=== PATIENT | female | born 1975 | race Caucasian/White ===

== ENCOUNTER 2025-07-20 10:17 | Inpatient (IN) ==
[2025-07-20] MEDS: HYDROmorphone INJ 0.5 MG/0.5 ML SYR IV STA ×2 (11:38→12:48)
[2025-07-20 11:56] LABS: Hematocrit (blood only) 35.9 % (37.0-47.0); Hemoglobin 12.0 g/dl (12.0-16.0); Immature Granulocytes # (auto) 0.02 K/uL (0.01-0.20); Immature Granulocytes % (auto) 0.2 %; Mean Corpuscular Hemoglobin 29.6 pg (25.0-34.0); Mean Corpuscular Volume 88.6 fL (80.0-100.0); Platelet Count 289 K/uL (130-400); RDW Standard Deviation 45.2 fL (36.4-46.3); Red Blood Count 4.05 M/uL (4.20-5.40); White Blood Count 10.25 K/ul (4.8-10.8)
--- NOTE | 2025-07-20 11:56 | Emergency Department Note ---
Impression & Plan Bilateral leg numbness, S/P insertion of spinal cord stimulator, Ambulatory dysfunction, Falls ED Provider Note Provider: Andrea Mcgraw MD CHIEF COMPLAINT: Leg weakness and pain, falls HISTORY OF PRESENT ILLNESS: Patient is a 50-year-old female extensive past medical history including spinal stenosis, fibromyalgia, recent kidney biopsy, spinal stimulator, neuropathy presenting here today reporting developing overnight increasing pain and numbness of the bilateral lower legs from the waist down. States of last week or 2 she has had a little bit of stool incontinence. States she got up in middle the night take her pain medicine her legs were burning and numb which was new. Does normally have neuropathy but this was different and has been taking her gabapentin. States she turned off her spinal stimulator last night to see if this would help. Fell to the ground onto her buttocks twice once overnight and once this morning. Had to be assisted up. TGs able to move her feet some but not very much and is weak and falling. Denies head injury or chest pain or neck pain. Reports a bit of nausea but that somewhat chronic. Takes chronic pain medicine as well as antiemetics at home. Spinal stimulator placed in March in [place] by pain management. States she cannot tolerate MRI secondary to this device. States she did urinate okay today. PAST MEDICAL HISTORY: As noted above MEDICATIONS: Reviewed no medications SOCIAL HISTORY: Resides at home PHYSICAL EXAM: GENERAL: alert and oriented in no acute distress on stretcher Head: normocephalic and atraumatic EYES: No injection, discharge or icterus. NECK: Trachea midline. ENT: Mucous membranes pink and moist. LUNGS: Airway patent. No retractions or tachypnea HEART: Regular rate and rhythm. No chest wall tenderness ABDOMEN: Soft and non-tender, without guarding or rebound. BACK: No midline tenderness, no SI joint tenderness. No bilateral flank tenderness. SKIN: Acyanotic, warm, dry, without rashes EXTREMITIES: Without swelling, tenderness or deformity NEUROLOGICAL:No aphasia. No facial droop or slurred speech. Feels sensation of the bilateral feet but states is diminished up through the bilateral thighs. Able to move the feet but not able to lift them off the bed. CONTINUOUS CARDIAC MONITORING: was ordered and showed a heart rate of 60s to 80s bpm in normal sinus rhythm GCS 15. Patient's laboratory studies and imaging reviewed. Differential includes Musculoskeletal, disc herniation, fracture, metastatic disease, cord compression, discitis, sciatica, cauda equina, infection, aortic disease, renal colic, gastrointestinal, as well as other pathologies. IMPRESSION/MEDICAL DECISION MAKING: Patient not on anticoagulation but is on aspirin and Plavix. Fell to the ground with leg weakness and numbness reported bilaterally. Denies any head injury. Chronic nausea is present. Given some pain medicine and nausea medicine here initially. Limitation secondary to her spinal stimulator for MRI and as such a CT abdomen pelvis as well as CT lumbar spine was obtained. Is able to move the feet some. Do not see evidence of vascular compromise or significant traumatic injury to lower extremities. Does have some underlying neuropathy but she states this is significantly worse. Denies other back surgeries in the past. Will obtain basic blood work as well as urinalysis but I do not believe this is renally related or infectious. No fevers reported. Blood work here without anemia. White blood count of 10 not significantly changed. No significant electrolyte abnormality signs or renal dysfunction of concern. No evidence of transaminitis or elevated CK. TSH is normal. CT of the abdomen pelvis and lumbar spine continue the cystic lesion right fusion but this is not changed and she just did a biopsy. Do NOT believe this is infected. No other acute bony abnormality of the lumbar spine such as fracture noted. No bleeding reported. Patient received additional dose of pain medication here. Discussed with patient findings. Obviously limited again by MRI. Does still have movement and gross sensation although she states diminished. Discussed with her coming in given her ambulatory dysfunction for further evaluation by spine. Discussed with Dr. Desai. I was able to get information of the patient has an [email or web address] stimulator. The device rep's number is [phone] Garcia out of [email or web address]. Discussed with MRI and they state they would be able to do it device is charged and placed in MRI mode. Evidently this is possible in the weekend as well. Will reach out to the hospitalist for admission given her ambulatory dysfunction & discomfort. DIAGNOSIS: Leg numbness, falls, ambulatory dysfunction DISPOSITION: Hospitalist will evaluate Patient was agreeable with this plan. Past Med/Surg History Problem List (Updated 07/20/25 @ 16:00 by Andrea Mcgraw M.D.) Falls (Acute) Ambulatory dysfunction (Acute) S/P insertion of spinal cord stimulator (Acute) Bilateral leg numbness (Acute) Status post biopsy of kidney (Acute) Acute right flank pain (Acute) Flank Pain (Acute) Bulging disc Arthritis Heart disease Hyperlipidemia Lupus Hypertension (Acute) Arthritis (Chronic) Fibromyalgia (Acute) Spinal stenosis (Chronic) Fibromyalgia (Chronic) Right upper quadrant abdominal pain (Acute) Asthma exacerbation (Acute) Hypertensive urgency (Acute 02/19/14) Intractable headache (Acute) Hypertensive crisis (Acute) Acute headache (Acute) Headache (Acute) Headache (Acute) Headache (Acute) Heart palpitations (Acute) Migraine (Acute) Family History Other No pertinent family history Social History Smoking Status: Current every day smoker Tobacco Type: Cigarettes Preferred Language: [place] Communication Ability: Effective Hearing Ability: Normal Feels Safe at Home: Yes Allergies Allergies Allergy/AdvReac Type Severity Reaction Status Date / Time azithromycin Allergy Severe shortness Verified 07/11/25 19:13 of breath citalopram Allergy Severe trouble Verified 07/11/25 19:13 breathing, loss of concisiousness iodine Allergy Severe ANAPHYLAXIS Verified 07/11/25 19:13 lisinopril Allergy Severe SHORTNESS Verified 07/11/25 19:13 OF BREATH; TAKES ENALAPRIL AT HOME W/O RXN Penicillins Allergy Severe SHORTNESS Verified 07/11/25 19:13 OF BREATH shellfish derived Allergy Severe ANAPHYLAXIS Verified 07/11/25 19:13 cephalexin Allergy Intermediate HIVES Verified 07/11/25 19:13 gabapentin Allergy Intermediate HIVES Verified 07/11/25 19:13 NSAIDS (Non-Steroidal Allergy Intermediate "ANTI-INFLAMMATORY" Verified 07/11/25 19:13 Anti-Inflamma = HIVES pregabalin Allergy Intermediate ITCHY Verified 07/11/25 19:13 RASH, SLIGHT SHORT OF BREATH meloxicam Allergy Mild RASH Verified 07/11/25 19:13 ketorolac AdvReac Severe SYNCOPE Verified 07/11/25 19:13 tromethamine AdvReac Severe SYNCOPE Verified 07/11/25 19:13 Sulfa (Sulfonamide AdvReac Mild NAUSEA Verified 07/11/25 19:13 Antibiotics) HOT DOGS AdvReac Intermediate Vomiting Uncoded 07/11/25 19:13 Home Meds Home Medications Medication Instructions Recorded Confirmed clopidogrel 75 mg tablet 75 mg PO QAM 07/24/18 07/20/25 cyanocobalamin (vitamin B-12) 1,000 mcg subcut MONTHLY 10/23/18 07/20/25 1,000 mcg/mL injection solution acetaminophen 300 mg-codeine 60 mg 1 tab PO Q6H PRN Pain 06/25/25 07/20/25 tablet albuterol sulfate 0.63 mg/3 mL 0.63 mg continuous nebulization 06/25/25 07/20/25 solution for nebulization Q6H PRN Wheezing albuterol sulfate 90 mcg/actuation 2 puff inhalation QID PRN 06/25/25 07/20/25 aerosol inhaler Shortness Of Breath Or Wheezing aspirin 81 mg chewable tablet 81 mg PO QAM 06/25/25 07/20/25 buprenorphine 20 mcg/hour weekly 1 patch topical WK 06/25/25 07/20/25 transdermal patch (Butrans) buspirone 10 mg tablet 10 mg PO QID 06/25/25 07/20/25 clonidine HCl 0.2 mg tablet 0.2 mg PO HS 06/25/25 07/20/25 docusate sodium 100 mg capsule 100 mg PO BID 06/25/25 07/20/25 epinephrine 0.3 mg/0.3 mL 0.3 mg IM DIRECTED PRN Allergic 06/25/25 07/20/25 injection, auto-injector Reaction ferrous sulfate 325 mg (65 mg 325 mg PO BID 06/25/25 07/20/25 iron) tablet (FeroSul) gabapentin 800 mg tablet 0 mg PO BID 06/25/25 07/20/25 gabapentin 800 mg tablet 0 mg PO HS 06/25/25 07/20/25 glimepiride 4 mg tablet 4 mg PO QAM 06/25/25 07/20/25 ipratropium 0.5 mg-albuterol 3 mg 3 ml inhalation Q6H PRN Wheezing 06/25/25 07/20/25 (2.5 mg base)/3 mL nebulization soln levocetirizine 5 mg tablet 5 mg PO QPM 06/25/25 07/20/25 magnesium oxide 400 mg (241.3 mg 400 mg PO BID 06/25/25 07/20/25 magnesium) tablet metformin 1,000 mg tablet 1,000 mg PO BID 06/25/25 07/20/25 metoprolol tartrate 100 mg tablet 100 mg PO BID 06/25/25 07/20/25 montelukast 10 mg tablet 10 mg PO HS 06/25/25 07/20/25 naproxen 500 mg tablet 500 mg PO BID PRN Pain 06/25/25 07/20/25 ondansetron HCl 4 mg tablet 4 mg PO Q6H 06/25/25 07/20/25 pantoprazole 40 mg tablet,delayed 40 mg PO BID 06/25/25 07/20/25 release pioglitazone 30 mg tablet 30 mg PO QAM 06/25/25 07/20/25 potassium chloride 20 mEq 20 meq PO BID 06/25/25 07/20/25 tablet,extended release(part/cryst) promethazine 25 mg tablet 25 mg PO BID 06/25/25 07/20/25 rosuvastatin 20 mg tablet 20 mg PO QAM 06/25/25 07/20/25 tizanidine 4 mg tablet 4 mg PO TID 06/25/25 07/20/25 trazodone 300 mg tablet 150 - 300 mg PO 06/25/25 07/20/25 umeclidinium 62.5 mcg-vilanterol 1 inh inhalation QA 06/25/25 07/20/25 25 mcg/actuation powdr for inhalation (Anoro Ellipta) viloxazine 150 mg capsule,extended 150 mg PO DAILY 06/25/25 07/20/25 release 24 hr (Qelbree) vortioxetine 20 mg tablet 20 mg PO DAILY 06/25/25 07/20/25 (Trintellix) zolpidem 12.5 mg tablet,extended 12.5 mg PO HS 06/25/25 07/20/25 release,multiphase ibuprofen 800 mg tablet 800 mg PO TID 07/11/25 07/20/25 metronidazole 500 mg tablet 500 mg PO TID 07/11/25 07/20/25 tramadol 50 mg tablet 50 mg PO Q4H PRN Pain 07/11/25 07/20/25 Previous Rx's Medication Instructions Recorded oxycodone 5 mg tablet 5 mg PO Q8H PRN pain #14 tabs 07/18/25 Results & Data (ED) Vital Signs Vital Signs - 24 hr 07/20/25 10:29 07/20/25 10:40 07/20/25 11:00 Temperature 36.8 C Temperature Source Oral Pulse Rate 74 73 72 Pulse Rate from SpO2 Sensor 72 Pulse Rhythm Respiratory Rate 20 16 Respiratory Effort / Characteristics Non-Labored Spontaneous Respiratory Depth Normal Respiratory Pattern Regular Blood Pressure 159/93 H 135/84 Blood Pressure Mean 115 95 Pulse Oximetry 96 95 Oxygen Delivery Method Room Air Room Air Sepsis Recent Fever Within 48 Hours No Sepsis New/Unexplained Change in Mental Status N/A Sepsis Action Taken by Nursing No Action Required 07/20/25 11:30 07/20/25 12:01 07/20/25 12:58 Temperature Temperature Source Pulse Rate 72 68 72 Pulse Rate from SpO2 Sensor 68 68 Pulse Rhythm Regular Respiratory Rate 24 17 15 Respiratory Effort / Characteristics Respiratory Depth Respiratory Pattern Blood Pressure 126/92 113/60 Blood Pressure Mean 103 70 Pulse Oximetry 91 92 90 Oxygen Delivery Method Room Air Room Air Room Air Sepsis Recent Fever Within 48 Hours Sepsis New/Unexplained Change in Mental Status Sepsis Action Taken by Nursing 07/20/25 13:30 07/20/25 14:33 07/20/25 15:23 Temperature Temperature Source Pulse Rate 68 73 72 Pulse Rate from SpO2 Sensor 68 73 Pulse Rhythm Respiratory Rate 15 17 Respiratory Effort / Characteristics Respiratory Depth Respiratory Pattern Blood Pressure 92/62 L 104/64 Blood Pressure Mean 72 77 Pulse Oximetry 92 92 Oxygen Delivery Method Room Air Room Air Sepsis Recent Fever Within 48 Hours Sepsis New/Unexplained Change in Mental Status Sepsis Action Taken by Nursing Laboratory Data 07/20/25 11:29 07/20/25 11:29 Lab Results 07/20/25 07/20/25 Range/Units 11:29 12:44 WBC 10.25 (4.8-10.8) K/ul RBC 4.05 L (4.20-5.40) M/uL Hgb 12.0 (12.0-16.0) g/dl Hct 35.9 L (37.0-47.0) % MCV 88.6 (80.0-100.0) fL MCH 29.6 (25.0-34.0) pg MCHC 33.4 (32.0-36.0) g/dL RDW Std Deviation 45.2 (36.4-46.3) fL RDW Coeff of Marliyn 14.0 (11.5-14.5) % Plt Count 289 (130-400) K/uL MPV 9.5 (9.4-12.4) fL Immature Gran % (Auto) 0.2 % Neut % (Auto) 49.9 % Lymph % (Auto) 42.7 % Iron % (Auto) 5.9 % Eos % (Auto) 1.0 % Baso % (Auto) 0.3 % Neut # (Auto) 5.12 (1.40-6.50) K/uL Lymph # (Auto) 4.38 H (1.20-3.40) K/uL Iron # (Auto) 0.60 H (0.11-0.59) K/uL Eos # (Auto) 0.10 (0.00-0.50) K/uL Baso # (Auto) 0.03 (0.00-0.20) K/uL Immature Gran # (Auto) 0.02 (0.01-0.20) K/uL PT 10.3 (9.0-12.0) Seconds INR 0.9 (0.9-1.1) Sodium 133 L (136-145) mmol/L Potassium 3.4 L (3.5-5.1) mmol/L Chloride 101 (98-107) mmol/L Carbon Dioxide 23 (21-32) mmol/L Anion Gap 9 (3-11) BUN 6 (6-23) mg/dl Creatinine 0.61 (0.6-1.2) mg/dl Est Cr Clr Drug Dosing 100.2 ml/min eGFR 109.53 BUN/Creatinine Ratio 9.8 L (10-20) Glucose 116 H (70-99(Fasting)) mg/dl POC Glucose 64 L* (70-99) mg/dl Calcium 9.1 (8.6-10.3) mg/dl Magnesium 1.7 (1.7-2.4) mg/dl Total Bilirubin 0.4 (0.2-1.0) mg/dl AST 13 (13-39) U/L ALT 11 (7-52) U/L Alkaline Phosphatase 108 H (34-104) U/L Total Creatine Kinase 28 (26-192) U/L Total Protein 6.5 (6.0-8.3) gm/dl Albumin 3.8 (3.4-5.0) gm/dl Globulin 2.7 (2.5-4.0) gm/dl Albumin/Globulin Ratio 1.4 (0.9-2) TSH 0.672 (0.300-4.500) uIu/ml Administered Medications Discontinued Medications Dexamethasone Sodium Phosphate (DexamethasonePf 10 Mg/Ml Vial) 6 mg IV NOW ONE Stop: 07/20/25 13:43 Last Admin: 07/20/25 14:25 Dose: 6 mg Documented By: QGV Hydromorphone HCl (Hydromorphone Inj 0.5 Mg/0.5 Ml Syr) 0.5 mg IV NOW STA Stop: 07/20/25 11:35 Last Admin: 07/20/25 11:38 Dose: 0.5 mg Documented By: BLAS Hydromorphone HCl (Hydromorphone Inj 0.5 Mg/0.5 Ml Syr) 0.5 mg IV NOW STA Stop: 07/20/25 12:31 Last Admin: 07/20/25 12:48 Dose: 0.5 mg Documented By: JOSELUIS Ondansetron HCl (Ondansetron Inj 2 Mg/Ml 2 Ml Vial) 4 mg IV NOW STA Stop: 07/20/25 11:43 Last Admin: 07/20/25 12:01 Dose: 4 mg Documented By: BLAS Imaging Data Radiologist's Impression: Abdomen/Pelvis CT 07/20/25 11:34 CT SCAN OF THE ABDOMEN AND PELVIS WITHOUT IV CONTRAST; CT SCAN OF THE LUMBAR SPINE WITHOUT IV CONTRAST CLINICAL HISTORY: Falls. Lower extremity weakness. Recent renal biopsy. COMPARISON STUDY: Abdominal CT dated 07/18/2025. TECHNIQUE: CT scan of the abdomen and pelvis is performed from the lung bases to the proximal femora. Additionally, CT scan of the lumbar spine is performed from the lower thoracic spine to the sacrum. Images for both examination are reviewed in the axial, sagittal, and coronal planes. IV contrast was not administered for this examination. A dose lowering technique was utilized adhering to the principles of ALARA. CT DOSE: 971.23 mGy.cm FINDINGS: Lung bases: The heart is mildly enlarged and without pericardial effusion. The coronary arteries are densely calcified. Probable scarring is seen at both lung bases. Diffuse pericardial thickening is observed. No lobar consolidation or pleural effusion is identified. There is a small hiatal hernia. Liver: The unenhanced liver is enlarged, measuring 20.8 cm in length. The liver is otherwise normal in contour and attenuation. There is no intrahepatic biliary ductal dilatation. Gallbladder: Surgically absent noting clips in the gallbladder fossa. Spleen: Normal in size and attenuation. Pancreas: Unremarkable. Adrenal glands: Unremarkable. Kidneys: The unenhanced kidneys are normal in size and without hydronephrosis. No renal calculi are identified and no ureteral stone is seen. Again seen is an approximately 4 x 2 cm cystic lesion arising from the interpolar right kidney which contains foci of gas. This is seen on image #94 and has not appreciably changed from 07/11/2025. There is mild surrounding inflammation. Abdominal vasculature: The abdominal aorta is normal in course and caliber noting advanced atherosclerotic calcification. Bowel: There is no bowel obstruction. [id number] fecal retention is seen throughout the colon. The appendix is not identified. Postoperative changes adjacent to cecum suggests prior appendectomy. Peritoneum: There is no intraperitoneal free air or abdominal ascites. Lymphadenopathy: Prominent retroperitoneal lymph nodes are similar to previous. A left periaortic node on image #144 measures 1.4 x 0.8 cm. Pelvic viscera: The bladder is distended but otherwise normal as imaged. The uterus is surgically absent. No adnexal lesion is seen. Skeletal structures: No lytic or blastic lesions are seen. Postsurgical changes noted in the lower thoracic region. An intrathecal lead is seen in the lower thoracic region. LUMBAR SPINE: Vertebral body height and alignment are maintained throughout the lumbar spine. There is no evidence of fracture or malalignment. The transverse and spinous processes are intact. There is no spondylolysis. There is mild disc space narrowing at L4-L5 with a small posterior disc bulge at this level. The remaining disc spaces are maintained. There is no CT evidence of large disc herniation or high-grade central canal stenosis. The paraspinous soft tissues are within normal limits. Soft tissues: A neurostimulator device is seen in the right gluteal tissues. IMPRESSION: 1. Again seen is a cystic lesion arising from the interpolar right kidney as detailed above. This has not appreciably changed from 07/18/2025 and contains foci of gas. There is mild surrounding inflammation. This may represent postbiopsy change. Superimposed infection would be impossible to exclude and clinical correlation will be essential. 2. No additional acute abnormality is identified in the abdomen or pelvis. 3. Prominent retroperitoneal lymph nodes are similar to previous. Continued attention at follow-up will be required. 4. No acute bony abnormality is seen involving the lumbar spine. 5. Advanced coronary artery atherosclerosis. 6. Additional findings as above. ACT 112: Negative or not required by law. Electronically signed by: Travon Pena M.D. 07/20/2025 12:[address] 07/20/25 11:34 CT SCAN OF THE ABDOMEN AND PELVIS WITHOUT IV CONTRAST; CT SCAN OF THE LUMBAR SPINE WITHOUT IV CONTRAST CLINICAL HISTORY: Falls. Lower extremity weakness. Recent renal biopsy. COMPARISON STUDY: Abdominal CT dated 07/18/2025. TECHNIQUE: CT scan of the abdomen and pelvis is performed from the lung bases to the proximal femora. Additionally, CT scan of the lumbar spine is performed from the lower thoracic spine to the sacrum. Images for both examination are reviewed in the axial, sagittal, and coronal planes. IV contrast was not administered for this examination. A dose lowering technique was utilized adhering to the principles of ALARA. CT DOSE: 971.23 mGy.cm FINDINGS: Lung bases: The heart is mildly enlarged and without pericardial effusion. The coronary arteries are densely calcified. Probable scarring is seen at both lung bases. Diffuse pericardial thickening is observed. No lobar consolidation or pleural effusion is identified. There is a small hiatal hernia. Liver: The unenhanced liver is enlarged, measuring 20.8 cm in length. The liver is otherwise normal in contour and attenuation. There is no intrahepatic biliary ductal dilatation. Gallbladder: Surgically absent noting clips in the gallbladder fossa. Spleen: Normal in size and attenuation. Pancreas: Unremarkable. Adrenal glands: Unremarkable. Kidneys: The unenhanced kidneys are normal in size and without hydronephrosis. No renal calculi are identified and no ureteral stone is seen. Again seen is an approximately 4 x 2 cm cystic lesion arising from the interpolar right kidney which contains foci of gas. This is seen on image #94 and has not appreciably changed from 07/11/2025. There is mild surrounding inflammation. Abdominal vasculature: The abdominal aorta is normal in course and caliber noting advanced atherosclerotic calcification. Bowel: There is no bowel obstruction. [id number] fecal retention is seen throughout the colon. The appendix is not identified. Postoperative changes adjacent to cecum suggests prior appendectomy. Peritoneum: There is no intraperitoneal free air or abdominal ascites. Lymphadenopathy: Prominent retroperitoneal lymph nodes are similar to previous. A left periaortic node on image #144 measures 1.4 x 0.8 cm. Pelvic viscera: The bladder is distended but otherwise normal as imaged. The uterus is surgically absent. No adnexal lesion is seen. Skeletal structures: No lytic or blastic lesions are seen. Postsurgical changes noted in the lower thoracic region. An intrathecal lead is seen in the lower thoracic region. LUMBAR SPINE: Vertebral body height and alignment are maintained throughout the lumbar spine. There is no evidence of fracture or malalignment. The transverse and spinous processes are intact. There is no spondylolysis. There is mild disc space narrowing at L4-L5 with a small posterior disc bulge at this level. The remaining disc spaces are maintained. There is no CT evidence of large disc herniation or high-grade central canal stenosis. The paraspinous soft tissues are within normal limits. Soft tissues: A neurostimulator device is seen in the right gluteal tissues. IMPRESSION: 1. Again seen is a cystic lesion arising from the interpolar right kidney as detailed above. This has not appreciably changed from 07/18/2025 and contains foci of gas. There is mild surrounding inflammation. This may represent postbiopsy change. Superimposed infection would be impossible to exclude and clinical correlation will be essential. 2. No additional acute abnormality is identified in the abdomen or pelvis. 3. Prominent retroperitoneal lymph nodes are similar to previous. Continued attention at follow-up will be required. 4. No acute bony abnormality is seen involving the lumbar spine. 5. Advanced coronary artery atherosclerosis. 6. Additional findings as above. ACT 112: Negative or not required by law. Electronically signed by: Travon Pena M.D. 07/20/2025 12:28 PM Discharge Plan Visit Data Chief Complaint: Leg Weakness, Bilateral Stated Complaint: NUMBNESS IN LEGS AND FEET ED Provider: Andrea Mcgraw Discharge Problem: Bilateral leg numbness, S/P insertion of spinal cord stimulator, Ambulatory dysfunction, Falls Patient Disposition: Being Evaluated by Hospitalist Condition: Fair Forms Stand Alone Forms: My [facility] Prescriptions Prescriptions: No Action clopidogrel 75 mg Tablet 75 mg PO QAM Rx Instructions: PER PT "STOPPED 3 DAYS AGO, DIRECTED" cyanocobalamin (vitamin B-12) 1,000 mcg/mL solution 1,000 mcg subcut MONTHLY Rx Instructions: DUE 07/23/25 albuterol sulfate 0.63 mg/3 mL solution for nebulization 0.63 mg continuous nebulization Q6H PRN (Reason: Wheezing) ipratropium-albuterol 0.5 mg-3 mg(2.5 mg base)/3 mL solution for nebulization 3 ml INHALATION Q6H PRN (Reason: Wheezing) metoprolol tartrate 100 mg tablet 100 mg PO BID tizanidine 4 mg tablet 4 mg PO TID Patient Comments: Originally written for as needed but patient states they take it three times a day standard. - 06/25/25 ondansetron HCl 4 mg tablet 4 mg PO Q6H Patient Comments: Originally written for as needed, but patient states she takes it every 6 hours standard. 06/25/25 clonidine HCl 0.2 mg tablet 0.2 mg PO HS potassium chloride 20 mEq tablet,ER particles/crystals 20 meq PO BID magnesium oxide 400 mg (241.3 mg magnesium) tablet 400 mg PO BID gabapentin 800 mg tablet 0 mg PO HS Patient Comments: Original Directions: 1200mg by mouth at bedtime. Listed as allergy on pt's allergy list. Unable to verify at this date/time if allergy is correct. 07/20/25 gabapentin 800 mg tablet 0 mg PO BID Patient Comments: Original Directions: 800mg by mouth twice daily. Listed as allergy on pt's allergy list. Unable to verify at this date/time if allergy is correct. 07/20/25 Rx Instructions: Morning/Afternoon pantoprazole 40 mg tablet,delayed release (DR/EC) 40 mg PO BID ferrous sulfate [FeroSul] 325 mg (65 mg iron) tablet 325 mg PO BID metformin 1,000 mg tablet 1,000 mg PO BID buspirone 10 mg tablet 10 mg PO QID glimepiride 4 mg tablet 4 mg PO QAM promethazine 25 mg tablet 25 mg PO BID Patient Comments: Originally written for as needed, but patient states she takes it twice daily. 06/25/25 trazodone 300 mg tablet 150 - 300 mg PO HS MDD 300mg/24hr Rx Instructions: Take 150mg at bedtime, and an additional 150mg if you wake up in the middle of the night. docusate sodium 100 mg capsule 100 mg PO BID aspirin 81 mg tablet,chewable 81 mg PO QAM Rx Instructions: PER PT "STOPPED 3 DAYS AGO, DIRECTED" montelukast 10 mg tablet 10 mg PO HS acetaminophen-codeine 300-60 mg tablet 1 tab PO Q6H PRN (Reason: Pain) Rx Instructions: PER PT "TAKE 4 X DAY, EVERY DAY". epinephrine 0.3 mg/0.3 mL auto-injector 0.3 mg IM DIRECTED PRN (Reason: Allergic Reaction) Rx Instructions: For a severe reaction Inject in outer thigh following instructions on package and go to the Emergency room. albuterol sulfate 90 mcg/actuation HFA aerosol inhaler 2 puff INHALATION QID PRN (Reason: Shortness Of Breath Or Wheezing) pioglitazone 30 mg tablet 30 mg PO QAM naproxen 500 mg tablet 500 mg PO BID PRN (Reason: Pain) rosuvastatin 20 mg tablet 20 mg PO QAM zolpidem 12.5 mg tablet,ext release multiphase 12.5 mg PO HS levocetirizine 5 mg tablet 5 mg PO QPM buprenorphine [Butrans] 20 mcg/hour patch weekly 1 patch topical WK Rx Instructions: Change patch on Fridays Trintellix 20 mg tablet 20 mg PO DAILY umeclidinium-vilanterol [Anoro Ellipta] 62.5-25 mcg/actuation blister with device 1 inh INHALATION QAM Qelbree 150 mg capsule,extended release 24hr 150 mg PO DAILY oxycodone 5 mg tablet 5 mg PO Q8H PRN (Reason: pain) Qty: 14 0RF ibuprofen 800 mg tablet 800 mg PO TID metronidazole 500 mg tablet 500 mg PO TID Rx Instructions: STARTED 06/29/25 FOR 14 DAYS tramadol 50 mg tablet 50 mg PO Q4H MDD 400 MG/DAILY PRN (Reason: Pain) Referrals Referrals: Ranjith Lane MD [Primary Care Provider] -
[2025-07-20] MEDS: ONDANSETRON INJ 2 MG/ML 2 ML VIAL IV STA (12:01)
[2025-07-20 12:21] LABS: Alanine Aminotransferase 11.0 U/L (7-52); Albumin Globulin Ratio 1.4 (0.9-2); Alkaline Phosphatase 108.0 U/L (34-104); Anion Gap 9.0 (3-11); Bilirubin,Total 0.4 mg/dl (0.2-1.0); Blood Urea Nitrogen 6.0 mg/dl (6-23); Calcium 9.1 mg/dl (8.6-10.3); Carbon Dioxide 23.0 mmol/L (21-32); Chloride 101.0 mmol/L (98-107); Creatine Kinase 28.0 U/L (26-192); Creatinine Clr Calc Pharmacy 100.2 ml/min; Globulin 2.7 gm/dl (2.5-4.0); Glucose 116.0 mg/dl (70-99(Fasting)); Magnesium 1.7 mg/dl (1.7-2.4); Potassium 3.4 mmol/L (3.5-5.1); Sodium 133.0 mmol/L (136-145); Total Protein 6.5 gm/dl (6.0-8.3)
[2025-07-20 12:23] LABS: INR 0.9 (0.9-1.1); Prothrombin Time 10.3 Seconds (9.0-12.0)
--- NOTE | 2025-07-20 12:30 | CT Scan Report ---
CT SCAN OF THE ABDOMEN AND PELVIS WITHOUT IV CONTRAST; CT SCAN OF THE LUMBAR SPINE WITHOUT IV CONTRAS T CLINICAL HISTORY: Falls. Lower extremity weakness. Recent renal biopsy. COMPARISON STUDY: Abdominal CT dated 07/18/2025. TECHNIQUE: CT scan of the abdomen and pelvis is performed from the lung bases to the proximal femora. Additionally, CT scan of the lumbar spine is performed from the lower thoracic spine to the sacrum. Images for both examination are reviewed in the axial, sagittal, and coronal planes. IV contrast was not administered for this examination. A dose lowering technique was utilized adhering to the princip les of YU. CT DOSE: 971.23 mGy.cm FINDINGS: Lung bases: The heart is mildly enlarged and without pericardial effusion. The coronary arteries are densely calcified. Probable scarring is seen at both lung bases. Diffuse pericardial thickening is ob served. No lobar consolidation or pleural effusion is identified. There is a small hiatal hernia. Liver: The unenhanced liver is enlarged, measuring 20.8 cm in length. The liver is otherwise normal i n contour and attenuation. There is no intrahepatic biliary ductal dilatation. Gallbladder: Surgically absent noting clips in the gallbladder fossa. Spleen: Normal in size and attenuation. Pancreas: Unremarkable. Adrenal glands: Unremarkable. Kidneys: The unenhanced kidneys are normal in size and without hydronephrosis. No renal calculi are i dentified and no ureteral stone is seen. Again seen is an approximately 4 x 2 cm cystic lesion arisin g from the interpolar right kidney which contains foci of gas. This is seen on image #94 and has not appreciably changed from 07/11/2025. There is mild surrounding inflammation. Abdominal vasculature: The abdominal aorta is normal in course and caliber noting advanced atheroscle rotic calcification. Bowel: There is no bowel obstruction. [id number] fecal retention is seen throughout the colon. The appendix is not identified. Postoperative changes adjacent to cecum suggests prior appendectomy. Peritoneum: There is no intraperitoneal free air or abdominal ascites. Lymphadenopathy: Prominent retroperitoneal lymph nodes are similar to previous. A left periaortic nod e on image #144 measures 1.4 x 0.8 cm. Pelvic viscera: The bladder is distended but otherwise normal as imaged. The uterus is surgically abs ent. No adnexal lesion is seen. Skeletal structures: No lytic or blastic lesions are seen. Postsurgical changes noted in the lower th oracic region. An intrathecal lead is seen in the lower thoracic region. LUMBAR SPINE: Vertebral body height and alignment are maintained throughout the lumbar spine. There i s no evidence of fracture or malalignment. The transverse and spinous processes are intact. There is no spondylolysis. There is mild disc space narrowing at L4-L5 with a small posterior disc bulge at th is level. The remaining disc spaces are maintained. There is no CT evidence of large disc herniation or high-grade central canal stenosis. The paraspinous soft tissues are within normal limits. Soft tissues: A neurostimulator device is seen in the right gluteal tissues. IMPRESSION: 1. Again seen is a cystic lesion arising from the interpolar right kidney as detailed above. This has not appreciably changed from 07/18/2025 and contains foci of gas. There is mild surrounding inflammati on. This may represent postbiopsy change. Superimposed infection would be impossible to exclude and c linical correlation will be essential. 2. No additional acute abnormality is identified in the abdomen or pelvis. 3. Prominent retroperitoneal lymph nodes are similar to previous. Continued attention at follow-up wi ll be required. 4. No acute bony abnormality is seen involving the lumbar spine. 5. Advanced coronary artery atherosclerosis. 6. Additional findings as above. ACT 112: Negative or not required by law. Electronically signed by: Travon Pena M.D. 07/20/2025 12:28 PM
[2025-07-20 12:36] LABS: Thyroid Stimulating Hormone 0.672 uIu/ml (0.300-4.500)
[2025-07-20] MEDS: dexAMETHasone**PF** 10 MG/ML VIAL IV ONE (14:25)
--- NOTE | 2025-07-20 15:38 | History & Physical Report ---
Date of Service July 20, 2025 Assessment & Plan (1) Bilateral leg numbness: Plan: Patient is a 50-year-old female with PMH HTN, HLD, COPD, DM II, CAD, STEMI s/p PCI LAD in 2019 & STEMI s/p PCI diagonal 2020, fibromyalgia, chronic pain, DDD, spinal stimulator placed March 2025 at [facility] in [place] PTSD, bipolar disorder, anxiety, depression, GERD, tobacco use presented to ER with c/o BLE weakness and bilateral feet pain started last night. #Chronic low back pain #BLE weakness #BLE numbness #BLE feet pain In ER given total 1 mg Dilaudid IV, Zofran, [address] abd/pelvis, CT L-spine: Again seen is a cystic lesion arising from the interpolar right kidney as detailed above. This has not appreciably changed from 07/18/2025 and contains foci of gas. There is mild surrounding inflammation. This may represent postbiopsy change. Superimposed infection would be impossible to exclude and clinical correlation will be essential. No additional acute abnormality is identified in the abdomen or pelvis. Prominent retroperitoneal lymph nodes are similar to previous. Continued attention at follow-up will be required. No acute bony abnormality is seen involving the lumbar spine. Consult ortho spine. Dr Desai aware and recommends MRI spine. MRI currently working to see if her stimulator is MRI compatible PT/OT eval Pain control with chronic Tylenol codeine, Butrans, gabapentin, tizanidine. Add Dilaudid as needed severe pain CBC, BMP in am #CAD #HTN #HLD Continue aspirin, Plavix, rosuvastatin, metoprolol tartrate, losartan, clonidine #DM II A1c: 8.3 on 07/06/25 In ER BSG dropped to 60's improved with juice and sandwich Hold home metformin, glimepiride Basal bolus insulin per protcol Glycemic pharmacist consult to assist with varying hypoglycemia and hyperglycemia #Nocturnal Hypoxia Pt reports was on up to 6L O2 via NC HS in past. States secondary to insurance issues has not had home oxygen Will start with 2L O2 HS and monitor nocturnal pulse ox study #COPD #Tobacco Use Continue home inhalers, albuterol prn Wheezing noted without reported increased cough, no sputum production or SOB. No consistent with COPD exacerbation at this time smoking cessation encouraged. Patient reports has cut back. She is hoping to stop smoking by the end of the month. Nicotine patch #Recent Pyelonephritis #Renal abscess vs Mass Following with [facility]. Treated with antibiotics. Reports no urinary symptoms. Reports improved right flank pain. Had recent renal biopsy on 07/17/25 at [facility], awaiting results UA unremarkable today # Bipolar disorder, anxiety, depression, PTSD Continue buspirone # GERD Continue PPI DVT Prophylaxis SCDs for now Admit med surg Full Code as per discussion with pt Follows with Dr Ranjith Lane for routine care Pt was seen and care coordinated with Dr Caba. See addendum I spent a total of 70 minutes reviewing notes, outpatient records, labs, medication, coordinating, documenting and providing care for this patient excluding time spent in the performance of separately billed services and excluding time spent by another provider/QHP. History of Present Illness Chief Complaint: BLE weakness and pain Primary Care Provider: Ranjith Lane MD Patient is a 50-year-old female with PMH HTN, HLD, COPD, DM II, CAD, STEMI s/p PCI LAD in 2019 & STEMI s/p PCI diagonal 2020, fibromyalgia, chronic pain, DDD, spinal stimulator placed March 2025 at [facility] in [place] PTSD, bipolar disorder, anxiety, depression, GERD, tobacco use presented to ER with c/o BLE weakness and bilateral feet pain started last night. Reports chronic back pain described as ache and sharp pain from mid back to lower back. She reports chronic bilateral heel pain with walking. She takes Tylenol with codeine four times a day and ibuprofen 800mg TID chronically. Reports woke up last night around midnight with low back pain. She took oxycodone (that she was given for right flank pain after renal biopsy) and fell back asleep. Reports waking up later to go to the bathroom and when she got to the bathroom she felt like her bilateral feet and lower legs were "on fire" and reports legs felt weak and couldn't walk back to bed without assistance. She states that her bilateral feet and lower legs feel tingly and numb along with the burning sensation. Reports last week had couple episodes stool incontinence. States chronic constipation and uses laxatives as needed. States past several days loose stool. States no bowel incontinence yesterday or today. Reports no BM today. States chronic stress urinary incontinence and feels this is baseline and denies any other urinary incontinence episodes. Denies dysuria, hematuria, urinary frequency. Patient with recent kidney biopsy and reports the right flank pain has improved but not resolved. Reports chronic cough. Denies any increased SOB. Denies fever/chills, diaphoresis, N/V, DIETZ, dizziness, syncope, vision changes, neck pain, CP, sore throat, rhinorrhea, other abdominal pain, extremity edema, rashes. Per chart review ER visit on 06/25/[address] abdomen pelvis with concern of pyelonephritis versus kidney abscess. She was ultimately transferred to [facility]. At [facility] for kidney infection and was discharged on 2 weeks of Levaquin, Flagyl course starting on 06/29/25 and patient reports completing the course. 07/17/2025 at [facility] for biopsy of right renal mass vs abscess Patient seen [facility] ER on 07/18/2025 for right flank pain and elevated blood pressure readings at home. In ER was given pain medication, UA unremarkable and did not have any leukocytosis. Blood pressures improved after pain control. Per note reported that ER physician spoke to her she on-call urology who felt if pain was controlled patient to be discharged home Allergies Allergy/AdvReac Type Severity Reaction Status Date / Time azithromycin Allergy Severe shortness Verified 07/11/25 19:13 of breath citalopram Allergy Severe trouble Verified 07/11/25 19:13 breathing, loss of concisiousness iodine Allergy Severe ANAPHYLAXIS Verified 07/11/25 19:13 lisinopril Allergy Severe SHORTNESS Verified 07/11/25 19:13 OF BREATH; TAKES ENALAPRIL AT HOME W/O RXN Penicillins Allergy Severe SHORTNESS Verified 07/11/25 19:13 OF BREATH shellfish derived Allergy Severe ANAPHYLAXIS Verified 07/11/25 19:13 cephalexin Allergy Intermediate HIVES Verified 07/11/25 19:13 gabapentin Allergy Intermediate HIVES Verified 07/11/25 19:13 NSAIDS (Non-Steroidal Allergy Intermediate "ANTI-INFLAMMATORY" Verified 07/11/25 19:13 Anti-Inflamma = HIVES pregabalin Allergy Intermediate ITCHY Verified 07/11/25 19:13 RASH, SLIGHT SHORT OF BREATH meloxicam Allergy Mild RASH Verified 07/11/25 19:13 ketorolac AdvReac Severe SYNCOPE Verified 07/11/25 19:13 tromethamine AdvReac Severe SYNCOPE Verified 07/11/25 19:13 Sulfa (Sulfonamide AdvReac Mild NAUSEA Verified 07/11/25 19:13 Antibiotics) HOT DOGS AdvReac Intermediate Vomiting Uncoded 07/11/25 19:13 Home Medications Medication Instructions Recorded Confirmed Type clopidogrel 75 mg tablet 75 mg PO QAM 07/24/18 07/20/25 History cyanocobalamin (vitamin B-12) 1,000 mcg subcut MONTHLY 10/23/18 07/20/25 History 1,000 mcg/mL injection solution acetaminophen 300 mg-codeine 60 mg 1 tab PO Q6H PRN Pain 06/25/25 07/20/25 History tablet albuterol sulfate 0.63 mg/3 mL 0.63 mg continuous nebulization 06/25/25 07/20/25 History solution for nebulization Q6H PRN Wheezing albuterol sulfate 90 mcg/actuation 2 puff inhalation QID PRN 06/25/25 07/20/25 History aerosol inhaler Shortness Of Breath Or Wheezing aspirin 81 mg chewable tablet 81 mg PO QAM 06/25/25 07/20/25 History buprenorphine 20 mcg/hour weekly 1 patch topical WK 06/25/25 07/20/25 History transdermal patch (Butrans) buspirone 10 mg tablet 10 mg PO QID 06/25/25 07/20/25 History clonidine HCl 0.2 mg tablet 0.2 mg PO HS 06/25/25 07/20/25 History docusate sodium 100 mg capsule 100 mg PO BID 06/25/25 07/20/25 History epinephrine 0.3 mg/0.3 mL 0.3 mg IM DIRECTED PRN Allergic 06/25/25 07/20/25 History injection, auto-injector Reaction ferrous sulfate 325 mg (65 mg 325 mg PO BID 06/25/25 07/20/25 History iron) tablet (FeroSul) gabapentin 800 mg tablet 1,200 mg PO HS 06/25/25 07/20/25 History gabapentin 800 mg tablet 800 mg PO BID 06/25/25 07/20/25 History glimepiride 4 mg tablet 4 mg PO QAM 06/25/25 07/20/25 History ipratropium 0.5 mg-albuterol 3 mg 3 ml inhalation Q6H PRN Wheezing 06/25/25 07/20/25 History (2.5 mg base)/3 mL nebulization soln levocetirizine 5 mg tablet 5 mg PO QPM 06/25/25 07/20/25 History magnesium oxide 400 mg (241.3 mg 400 mg PO BID 06/25/25 07/20/25 History magnesium) tablet metformin 1,000 mg tablet 1,000 mg PO BID 06/25/25 07/20/25 History metoprolol tartrate 100 mg tablet 100 mg PO BID 06/25/25 07/20/25 History montelukast 10 mg tablet 10 mg PO HS 06/25/25 07/20/25 History naproxen 500 mg tablet 500 mg PO BID PRN Pain 06/25/25 07/20/25 History ondansetron HCl 4 mg tablet 4 mg PO Q6H 06/25/25 07/20/25 History pantoprazole 40 mg tablet,delayed 40 mg PO BID 06/25/25 07/20/25 History release pioglitazone 30 mg tablet 30 mg PO QAM 06/25/25 07/20/25 History potassium chloride 20 mEq 20 meq PO BID 06/25/25 07/20/25 History tablet,extended release(part/cryst) promethazine 25 mg tablet 25 mg PO BID 06/25/25 07/20/25 History rosuvastatin 20 mg tablet 20 mg PO QAM 06/25/25 07/20/25 History tizanidine 4 mg tablet 4 mg PO TID 06/25/25 07/20/25 History trazodone 300 mg tablet 150 - 300 mg PO HS 06/25/25 07/20/25 History umeclidinium 62.5 mcg-vilanterol 2 inh inhalation QA 06/25/25 07/20/25 History 25 mcg/actuation powdr for inhalation (Anoro Ellipta) viloxazine 150 mg capsule,extended 150 mg PO DAILY 06/25/25 07/20/25 History release 24 hr (Qelbree) vortioxetine 20 mg tablet 20 mg PO DAILY 06/25/25 07/20/25 History (Trintellix) zolpidem 12.5 mg tablet,extended 12.5 mg PO HS 06/25/25 07/20/25 History release,multiphase ibuprofen 800 mg tablet 800 mg PO TID 07/11/25 07/20/25 History oxycodone 5 mg tablet 5 mg PO Q8H PRN pain #14 tabs 07/18/25 07/20/25 Rx Past Med/Surg History Problem List Falls (Acute) Ambulatory dysfunction (Acute) S/P insertion of spinal cord stimulator (Acute) Bilateral leg numbness (Acute) Status post biopsy of kidney (Acute) Acute right flank pain (Acute) Flank Pain (Acute) Bulging disc Arthritis Heart disease Hyperlipidemia Lupus Hypertension (Acute) Arthritis (Chronic) Fibromyalgia (Acute) Spinal stenosis (Chronic) Fibromyalgia (Chronic) Right upper quadrant abdominal pain (Acute) Asthma exacerbation (Acute) Hypertensive urgency (Acute 02/19/14) Intractable headache (Acute) Hypertensive crisis (Acute) Acute headache (Acute) Headache (Acute) Headache (Acute) Headache (Acute) Heart palpitations (Acute) Migraine (Acute) Surgical History (Updated 07/20/25 @ 17:18 by Janis Ernst PA-C) History of tonsillectomy and adenoidectomy History of hysterectomy Family History (Updated 07/20/25 @ 17:18 by Janis Ernst PA-C) Other Breast cancer Cancer Diabetes Dyslipidemia No pertinent family history Social History Smoking Status: Current every day smoker Tobacco Type: Cigarettes Second Hand Exposure: Yes; Do You Dip or Chew Tobacco: No; Tobacco Cessation Education Requested by Patient: No Hx Alcohol Use: No Hx Substance Use: No Preferred Language: Chinese Communication Ability: Effective Hearing Ability: Normal Sock Ironer Required: No Beliefs That Will Affect Care: None Current Living Situation: Family Other Information That Helps Us Care for You: No Feels Safe at Home: Yes Safety Concerns: Feels Safe At This Time Assistive Devices: Cane, Denture - Upper, Denture - Lower, Glasses and Walker Review of Systems Review of Systems: All systems reviewed & are unremarkable except as noted in HPI & below Physical Exam Physical Exam: General: no distress, WDWN Head: normocephalic, atraumatic Eyes: conjunctiva non-injected, anicteric ENT: normal inspection external ears, nose, mucous membranes moist Neck: supple, trachea midline Lungs: no respiratory distress, +scattered wheezing, no rhonchi/rales CV: RRR, no murmur, no pretibial edema Abd: normal BS, soft, +tenderness to right flank (pt reports has decreased prior prior) Back: +healed scar, +diffuse tenderness to palpation entire thoracic and lumbar spine, no ecchymosis or erythema. +straight leg raise to 45 degrees. strength appears intact and dorsiflexion and plantar flexion intact. Reported decreased sensation to dorsal and plantar bilateral feet and posterior calves bilaterally. brisk capillary refill, sensation to light touch intact Ext: no cyanosis, no calf tenderness Neuro: A&O x 3, no focal deficits noted, normal affect Skin: warm, dry Results & Data Results & Data Vital Signs (Past 12 Hours) Vital Signs Temp Pulse Resp BP Pulse Ox O2 Del Method 07/20/25 15:23 72 07/20/25 14:33 73 17 104/64 92 Room Air 07/20/25 13:30 68 15 92/62 L 92 Room Air 07/20/25 12:58 72 15 90 Room Air 07/20/25 12:01 68 17 113/60 92 Room Air 07/20/25 11:30 72 24 126/92 91 Room Air 07/20/25 11:00 72 16 135/84 95 Room Air 07/20/25 10:40 73 07/20/25 10:29 36.8 C 74 20 159/93 H 96 Room Air Laboratory Results Short CBC 07/20/25 Range/Units 11:29 WBC 10.25 (4.8-10.8) K/ul Hgb 12.0 (12.0-16.0) g/dl Hct 35.9 L (37.0-47.0) % Plt Count 289 (130-400) K/uL BMP 07/20/25 11:29 Sodium 133 L Potassium 3.4 L Chloride 101 Carbon Dioxide 23 BUN 6 Creatinine 0.61 Glucose 116 H Calcium 9.1 Cardiac Enzymes 07/20/25 Range/Units 11:29 Total Creatine Kinase 28 (26-192) U/L Liver Function 07/20/25 Range/Units 11:29 Total Bilirubin 0.4 (0.2-1.0) mg/dl AST 13 (13-39) U/L ALT 11 (7-52) U/L Alkaline Phosphatase 108 H (34-104) U/L Albumin 3.8 (3.4-5.0) gm/dl Urine 07/20/25 Range/Units 16:46 Urine Color Yellow Urine Appearance Clear (Clear) Urine pH 6.0 (4.5-7.5) Ur Specific [place] 1.007 (1.000-1.030) Urine Protein Negative (Negative) Urine Glucose (UA) Negative (Negative) Diagnostic Findings Abdomen/Pelvis CT 07/20/25 11:34 CT SCAN OF THE ABDOMEN AND PELVIS WITHOUT IV CONTRAST; CT SCAN OF THE LUMBAR SPINE WITHOUT IV CONTRAST CLINICAL HISTORY: Falls. Lower extremity weakness. Recent renal biopsy. COMPARISON STUDY: Abdominal CT dated 07/18/2025. TECHNIQUE: CT scan of the abdomen and pelvis is performed from the lung bases to the proximal femora. Additionally, CT scan of the lumbar spine is performed from the lower thoracic spine to the sacrum. Images for both examination are reviewed in the axial, sagittal, and coronal planes. IV contrast was not administered for this examination. A dose lowering technique was utilized adhering to the principles of ALARA. CT DOSE: 971.23 mGy.cm FINDINGS: Lung bases: The heart is mildly enlarged and without pericardial effusion. The coronary arteries are densely calcified. Probable scarring is seen at both lung bases. Diffuse pericardial thickening is observed. No lobar consolidation or pleural effusion is identified. There is a small hiatal hernia. Liver: The unenhanced liver is enlarged, measuring 20.8 cm in length. The liver is otherwise normal in contour and attenuation. There is no intrahepatic biliary ductal dilatation. Gallbladder: Surgically absent noting clips in the gallbladder fossa. Spleen: Normal in size and attenuation. Pancreas: Unremarkable. Adrenal glands: Unremarkable. Kidneys: The unenhanced kidneys are normal in size and without hydronephrosis. No renal calculi are identified and no ureteral stone is seen. Again seen is an approximately 4 x 2 cm cystic lesion arising from the interpolar right kidney which contains foci of gas. This is seen on image #94 and has not appreciably changed from 07/11/2025. There is mild surrounding inflammation. Abdominal vasculature: The abdominal aorta is normal in course and caliber noting advanced atherosclerotic calcification. Bowel: There is no bowel obstruction. [id number] fecal retention is seen throughout the colon. The appendix is not identified. Postoperative changes adjacent to cecum suggests prior appendectomy. Peritoneum: There is no intraperitoneal free air or abdominal ascites. Lymphadenopathy: Prominent retroperitoneal lymph nodes are similar to previous. A left periaortic node on image #144 measures 1.4 x 0.8 cm. Pelvic viscera: The bladder is distended but otherwise normal as imaged. The uterus is surgically absent. No adnexal lesion is seen. Skeletal structures: No lytic or blastic lesions are seen. Postsurgical changes noted in the lower thoracic region. An intrathecal lead is seen in the lower thoracic region. LUMBAR SPINE: Vertebral body height and alignment are maintained throughout the lumbar spine. There is no evidence of fracture or malalignment. The transverse and spinous processes are intact. There is no spondylolysis. There is mild disc space narrowing at L4-L5 with a small posterior disc bulge at this level. The remaining disc spaces are maintained. There is no CT evidence of large disc herniation or high-grade central canal stenosis. The paraspinous soft tissues are within normal limits. Soft tissues: A neurostimulator device is seen in the right gluteal tissues. IMPRESSION: 1. Again seen is a cystic lesion arising from the interpolar right kidney as detailed above. This has not appreciably changed from 07/18/2025 and contains foci of gas. There is mild surrounding inflammation. This may represent postbiopsy change. Superimposed infection would be impossible to exclude and clinical correlation will be essential. 2. No additional acute abnormality is identified in the abdomen or pelvis. 3. Prominent retroperitoneal lymph nodes are similar to previous. Continued attention at follow-up will be required. 4. No acute bony abnormality is seen involving the lumbar spine. 5. Advanced coronary artery atherosclerosis. 6. Additional findings as above. ACT 112: Negative or not required by law. Electronically signed by: Travon Pena M.D. 07/20/2025 12:[address] 07/20/25 11:34 CT SCAN OF THE ABDOMEN AND PELVIS WITHOUT IV CONTRAST; CT SCAN OF THE LUMBAR SPINE WITHOUT IV CONTRAST CLINICAL HISTORY: Falls. Lower extremity weakness. Recent renal biopsy. COMPARISON STUDY: Abdominal CT dated 07/18/2025. TECHNIQUE: CT scan of the abdomen and pelvis is performed from the lung bases to the proximal femora. Additionally, CT scan of the lumbar spine is performed from the lower thoracic spine to the sacrum. Images for both examination are reviewed in the axial, sagittal, and coronal planes. IV contrast was not administered for this examination. A dose lowering technique was utilized adhering to the principles of ALARA. CT DOSE: 971.23 mGy.cm FINDINGS: Lung bases: The heart is mildly enlarged and without pericardial effusion. The coronary arteries are densely calcified. Probable scarring is seen at both lung bases. Diffuse pericardial thickening is observed. No lobar consolidation or pleural effusion is identified. There is a small hiatal hernia. Liver: The unenhanced liver is enlarged, measuring 20.8 cm in length. The liver is otherwise normal in contour and attenuation. There is no intrahepatic biliary ductal dilatation. Gallbladder: Surgically absent noting clips in the gallbladder fossa. Spleen: Normal in size and attenuation. Pancreas: Unremarkable. Adrenal glands: Unremarkable. Kidneys: The unenhanced kidneys are normal in size and without hydronephrosis. No renal calculi are identified and no ureteral stone is seen. Again seen is an approximately 4 x 2 cm cystic lesion arising from the interpolar right kidney which contains foci of gas. This is seen on image #94 and has not appreciably changed from 07/11/2025. There is mild surrounding inflammation. Abdominal vasculature: The abdominal aorta is normal in course and caliber noting advanced atherosclerotic calcification. Bowel: There is no bowel obstruction. [id number] fecal retention is seen throughout the colon. The appendix is not identified. Postoperative changes adjacent to cecum suggests prior appendectomy. Peritoneum: There is no intraperitoneal free air or abdominal ascites. Lymphadenopathy: Prominent retroperitoneal lymph nodes are similar to previous. A left periaortic node on image #144 measures 1.4 x 0.8 cm. Pelvic viscera: The bladder is distended but otherwise normal as imaged. The uterus is surgically absent. No adnexal lesion is seen. Skeletal structures: No lytic or blastic lesions are seen. Postsurgical changes noted in the lower thoracic region. An intrathecal lead is seen in the lower thoracic region. LUMBAR SPINE: Vertebral body height and alignment are maintained throughout the lumbar spine. There is no evidence of fracture or malalignment. The transverse and spinous processes are intact. There is no spondylolysis. There is mild disc space narrowing at L4-L5 with a small posterior disc bulge at this level. The remaining disc spaces are maintained. There is no CT evidence of large disc herniation or high-grade central canal stenosis. The paraspinous soft tissues are within normal limits. Soft tissues: A neurostimulator device is seen in the right gluteal tissues. IMPRESSION: 1. Again seen is a cystic lesion arising from the interpolar right kidney as detailed above. This has not appreciably changed from 07/18/2025 and contains foci of gas. There is mild surrounding inflammation. This may represent postbiopsy change. Superimposed infection would be impossible to exclude and clinical correlation will be essential. 2. No additional acute abnormality is identified in the abdomen or pelvis. 3. Prominent retroperitoneal lymph nodes are similar to previous. Continued attention at follow-up will be required. 4. No acute bony abnormality is seen involving the lumbar spine. 5. Advanced coronary artery atherosclerosis. 6. Additional findings as above. ACT 112: Negative or not required by law. Electronically signed by: Travon Pena M.D. 07/20/2025 12:28 PM Supervising Physician Co-Signing Physician Notes 50-year-old female with PMH of HTN, HLD, COPD, DM II, CAD, STEMI s/p PCI LAD in 2019 & STEMI s/p PCI diagonal 2020, fibromyalgia, chronic pain, DDD, spinal stimulator placed March 2025 at [facility] in [place] PTSD, bipolar disorder, anxiety, depression, GERD, tobacco use presented to ER with c/o acute on chronic back pain w/ radiation to ble calf/heel. Pt reports she has chronic back pain w/ chronic b/l heel paresthesias but this time the paresthesias feel different. She reported few incontinent bowel movements in the last one week but states she was able to control bowel movement yesterday which was her last BM. She denies any incontinent problem w/ urine. Labs and imaging reviewed. appears fairly wnl, replete KCL. Acute on chronic back pain: a/w ble paresthesias. c/w home meds and iv pain meds for breakthrough pain. prn bowel regimen. On exam: RA, NAD, moves extremities, power 5/5 all extremities, rest of the exam as above. Total time spent independently: 21 min I have seen and examined the patient and have discussed the case with the provider above. I agree with the assessment and plan as stated.
[2025-07-20] MEDS: POTASSIUM CHLORIDE CRTAB 20 MEQ TABCR PO STA (16:43)
[2025-07-20 17:02] LABS: Appearance Urine Clear (Clear); Bacteria Urine Automated None Seen (None Seen); Cast Urine Automated 0-2 /lpf (0-2); Epithelial Cell Urine Auto 0-2 /hpf (0-2); Glucose Urine UA Negative (Negative); RBC Urine Automated 0-2 /hpf (0-2); WBC Urine Automated 0-5 /hpf (0-5)
[2025-07-20] MEDS ORDERED: GLUCOSE 10 TAB/TUBE PO PRN (19:12)
[2025-07-20] MEDS ORDERED: CARBOHYDRATES FOR HYPOGLYCEMIA PO PRN (19:12)
[2025-07-20] MEDS ORDERED: ALBUTEROL 0.083% NEBU SOLN 3 ML VIAL NEB PRN (19:12)
[2025-07-20] MEDS ORDERED: GLUCAGON FOR INJ 1 MG VIAL SQ PRN (19:12)
[2025-07-20] MEDS ORDERED: POLYETHYLENE (MIRALAX) 17 GM PACK PO PRN (19:12)
[2025-07-20] MEDS ORDERED: DEXTROSE 50% 50 ML SYRINGE IV PRN (19:12)
[2025-07-20] MEDS ORDERED: GLUCOSE 40% GEL 15 GM TUBE PO PRN (19:12)
[2025-07-20] MEDS ORDERED: PHARMACY GLYCEMIC MGMT CONSULT PRN (20:24)
[2025-07-20] MEDS: ACETAMINOPHEN W/CODEINE #3 1 TAB PO PRN (20:39)
[2025-07-20] MEDS: MAGNESIUM OXIDE 400 MG TAB PO SCH (20:40)
[2025-07-20] MEDS: CETIRIZINE HCL 10 MG TABLET PO SCH (20:40)
[2025-07-20] MEDS: busPIRone 5 MG TAB PO SCH (20:41)
[2025-07-20] MEDS: METOPROLOL TARTRATE 100 MG TAB PO SCH (20:41)
[2025-07-20] MEDS: GABAPENTIN 600 MG TAB PO SCH (20:41)
[2025-07-20] MEDS: GABAPENTIN 800 MG TAB PO SCH (20:41)
[2025-07-20] MEDS: MONTELUKAST SODIUM 10 MG TABLET PO SCH (20:41)
[2025-07-20] MEDS: FERROUS SULFATE 325 MG TAB PO SCH (20:41)
[2025-07-20] MEDS: INSULIN ASPART PER UNIT CHARGE SC SCH (20:49)
[2025-07-20] MEDS: ZOLPIDEM TARTRATE 5 MG TAB PO PRN (20:49)
[2025-07-20] MEDS: LANTUS PER UNIT CHARGE SC ONE (20:51)
[2025-07-20] MEDS: NICOTINE 14 MG/24 HR PATCH TD SCH (20:52)
[2025-07-20] MEDS: BUPRENORPHINE 10 MCG/HR TDSY TD SCH (20:58)
[2025-07-20] MEDS: REMOVE BUTRANS PATCH SCH (20:58)
[2025-07-20] MEDS ORDERED: LANTUS PER UNIT CHARGE SQ SCH (21:00)
[2025-07-21] MEDS: INSULIN ASPART PER UNIT CHARGE SC SCH (00:12)
[2025-07-21] MEDS: HYDROmorphone INJ 0.5 MG/0.5 ML SYR IV PRN ×2 (03:12→13:25)
[2025-07-21 06:52] LABS: Hematocrit (blood only) 34.2 % (37.0-47.0); Hemoglobin 11.5 g/dl (12.0-16.0); Mean Corpuscular Hemoglobin 29.6 pg (25.0-34.0); Mean Corpuscular Volume 88.1 fL (80.0-100.0); Platelet Count 234 K/uL (130-400); RDW Standard Deviation 44.2 fL (36.4-46.3); Red Blood Count 3.88 M/uL (4.20-5.40); White Blood Count 9.83 K/ul (4.8-10.8)
[2025-07-21 07:19] LABS: Anion Gap 6.0 (3-11); Blood Urea Nitrogen 11.0 mg/dl (6-23); Calcium 9.2 mg/dl (8.6-10.3); Carbon Dioxide 24.0 mmol/L (21-32); Chloride 105.0 mmol/L (98-107); Creatinine Clr Calc Pharmacy 119.5 ml/min; Glucose 129.0 mg/dl (70-99(Fasting)); Magnesium 2.0 mg/dl (1.7-2.4); Potassium 4.6 mmol/L (3.5-5.1); Sodium 135.0 mmol/L (136-145)
[2025-07-21 07:26] LABS: Hemoglobin A1C 8.9 % (4.5-5.6)
[2025-07-21] MEDS: REMOVE NICODERM PATCH SCH (08:26)
[2025-07-21] MEDS: POTASSIUM CHLORIDE CRTAB 20 MEQ TABCR PO SCH (08:28)
[2025-07-21] MEDS: UMECLIDINIUM/VILANTEROL 62.5/25MCG 7 PUFFS/INHALER INH SCH (08:29)
[2025-07-21] MEDS: VORTIOXETINE HYDROBROMIDE 20 MG TAB PO SCH (08:29)
[2025-07-21] MEDS: ROSUVASTATIN CALCIUM 20 MG TAB PO SCH (08:30)
[2025-07-21] MEDS: CLOPIDOGREL BISULFATE 75 MG TAB PO SCH (08:30)
[2025-07-21] MEDS: ASPIRIN 81 MG CHEW PO SCH (08:34)
--- NOTE | 2025-07-21 08:38 | Orthopedic Consultation ---
Date of Consultation July 21, 2025 Assessment & Plan (1) Ambulatory dysfunction: At this time we are working with [facility] to see if we can place her spinal cord stimulator in MRI mode and safely obtain an MRI of both the thoracic and lumbar spine to see if we can account for her change in ambulation function and foot pain. Make further recommendations after scans obtained. History of Present Illness Reason for Consultation: Bilateral foot pain Attending Physician: Taye Deras MD History of Present Illness This is a 50-year-old female with states that she began experiencing bilateral foot pain and numbness within the past few days. Is markedly limited her ability to stand and ambulate. She denies any clear radicular complaints. Denies any significant thoracolumbar pain. She denies any precipitating or event that led to her problem. Allergies Allergy/AdvReac Type Severity Reaction Status Date / Time azithromycin Allergy Severe shortness Verified 07/11/25 19:13 of breath citalopram Allergy Severe trouble Verified 07/11/25 19:13 breathing, loss of concisiousness iodine Allergy Severe ANAPHYLAXIS Verified 07/11/25 19:13 lisinopril Allergy Severe SHORTNESS Verified 07/11/25 19:13 OF BREATH; TAKES ENALAPRIL AT HOME W/O RXN Penicillins Allergy Severe SHORTNESS Verified 07/11/25 19:13 OF BREATH shellfish derived Allergy Severe ANAPHYLAXIS Verified 07/11/25 19:13 cephalexin Allergy Intermediate HIVES Verified 07/11/25 19:13 gabapentin Allergy Intermediate HIVES Verified 07/11/25 19:13 NSAIDS (Non-Steroidal Allergy Intermediate "ANTI-INFLAMMATORY" Verified 07/11/25 19:13 Anti-Inflamma = HIVES pregabalin Allergy Intermediate ITCHY Verified 07/11/25 19:13 RASH, SLIGHT SHORT OF BREATH meloxicam Allergy Mild RASH Verified 07/11/25 19:13 ketorolac AdvReac Severe SYNCOPE Verified 07/11/25 19:13 tromethamine AdvReac Severe SYNCOPE Verified 07/11/25 19:13 Sulfa (Sulfonamide AdvReac Mild NAUSEA Verified 07/11/25 19:13 Antibiotics) HOT DOGS AdvReac Intermediate Vomiting Uncoded 07/11/25 19:13 Home Medications Medication Instructions Recorded Confirmed Type clopidogrel 75 mg tablet 75 mg PO QAM 07/24/18 07/20/25 History cyanocobalamin (vitamin B-12) 1,000 mcg subcut MONTHLY 10/23/18 07/20/25 History 1,000 mcg/mL injection solution acetaminophen 300 mg-codeine 60 mg 1 tab PO Q6H PRN Pain 06/25/25 07/20/25 History tablet albuterol sulfate 0.63 mg/3 mL 0.63 mg continuous nebulization 06/25/25 07/20/25 History solution for nebulization Q6H PRN Wheezing albuterol sulfate 90 mcg/actuation 2 puff inhalation QID PRN 06/25/25 07/20/25 History aerosol inhaler Shortness Of Breath Or Wheezing aspirin 81 mg chewable tablet 81 mg PO QAM 06/25/25 07/20/25 History buprenorphine 20 mcg/hour weekly 1 patch topical WK 06/25/25 07/20/25 History transdermal patch (Butrans) buspirone 10 mg tablet 10 mg PO QID 06/25/25 07/20/25 History clonidine HCl 0.2 mg tablet 0.2 mg PO HS 06/25/25 07/20/25 History docusate sodium 100 mg capsule 100 mg PO BID 06/25/25 07/20/25 History epinephrine 0.3 mg/0.3 mL 0.3 mg IM DIRECTED PRN Allergic 06/25/25 07/20/25 History injection, auto-injector Reaction ferrous sulfate 325 mg (65 mg 325 mg PO BID 06/25/25 07/20/25 History iron) tablet (FeroSul) gabapentin 800 mg tablet 1,200 mg PO HS 06/25/25 07/20/25 History gabapentin 800 mg tablet 800 mg PO BID 06/25/25 07/20/25 History glimepiride 4 mg tablet 4 mg PO QAM 06/25/25 07/20/25 History ipratropium 0.5 mg-albuterol 3 mg 3 ml inhalation Q6H PRN Wheezing 06/25/25 07/20/25 History (2.5 mg base)/3 mL nebulization soln levocetirizine 5 mg tablet 5 mg PO QPM 06/25/25 07/20/25 History magnesium oxide 400 mg (241.3 mg 400 mg PO BID 06/25/25 07/20/25 History magnesium) tablet metformin 1,000 mg tablet 1,000 mg PO BID 06/25/25 07/20/25 History metoprolol tartrate 100 mg tablet 100 mg PO BID 06/25/25 07/20/25 History montelukast 10 mg tablet 10 mg PO HS 06/25/25 07/20/25 History naproxen 500 mg tablet 500 mg PO BID PRN Pain 06/25/25 07/20/25 History ondansetron HCl 4 mg tablet 4 mg PO Q6H 06/25/25 07/20/25 History pantoprazole 40 mg tablet,delayed 40 mg PO BID 06/25/25 07/20/25 History release pioglitazone 30 mg tablet 30 mg PO QAM 06/25/25 07/20/25 History potassium chloride 20 mEq 20 meq PO BID 06/25/25 07/20/25 History tablet,extended release(part/cryst) promethazine 25 mg tablet 25 mg PO BID 06/25/25 07/20/25 History rosuvastatin 20 mg tablet 20 mg PO QAM 06/25/25 07/20/25 History tizanidine 4 mg tablet 4 mg PO TID 06/25/25 07/20/25 History trazodone 300 mg tablet 150 - 300 mg PO HS 06/25/25 07/20/25 History umeclidinium 62.5 mcg-vilanterol 2 inh inhalation QA 06/25/25 07/20/25 History 25 mcg/actuation powdr for inhalation (Anoro Ellipta) viloxazine 150 mg capsule,extended 150 mg PO DAILY 06/25/25 07/20/25 History release 24 hr (Qelbree) vortioxetine 20 mg tablet 20 mg PO DAILY 06/25/25 07/20/25 History (Trintellix) zolpidem 12.5 mg tablet,extended 12.5 mg PO HS 06/25/25 07/20/25 History release,multiphase ibuprofen 800 mg tablet 800 mg PO TID 07/11/25 07/20/25 History oxycodone 5 mg tablet 5 mg PO Q8H PRN pain #14 tabs 07/18/25 07/20/25 Rx Patient History Surgical History (Updated 07/20/25 @ 17:18 by Janis Ernst PA-C) History of tonsillectomy and adenoidectomy History of hysterectomy Family History (Updated 07/20/25 @ 17:18 by Janis Ernst PA-C) Other Breast cancer Cancer Diabetes Dyslipidemia No pertinent family history Social History Smoking Status: Current every day smoker Tobacco Type: Cigarettes Second Hand Exposure: Yes; Do You Dip or Chew Tobacco: No; Tobacco Cessation Education Requested by Patient: No Hx Alcohol Use: No Hx Substance Use: No Preferred Language: Azerbaijani Communication Ability: Effective Hearing Ability: Normal [employer] Required: No Beliefs That Will Affect Care: None Current Living Situation: Family Other Information That Helps Us Care for You: No Feels Safe at Home: Yes Safety Concerns: Feels Safe At This Time Assistive Devices: Cane, Denture - Upper, Denture - Lower, Glasses and Walker Physical Exam Physical Exam: On exam patient is able to sit up in bed without difficulty. She can cross her legs comfortably. She exhibits some breakaway weakness is testing the plantarflexion dorsiflexion of the lower extremities. Sensory is diminished. She does have full sensation to the lower leg and thigh. Incisions are well- healed from the dorsal column stimulator placement. Results & Data Vital Signs (Past 12 Hours) Vital Signs Temp Pulse Pulse Resp BP Pulse Ox Pulse Ox 07/21/25 07:43 36.7 C 69 16 153/93 H 94 07/21/25 05:10 72 95 07/21/25 00:42 82 93 07/20/25 23:02 36.9 C 77 14 106/68 94 07/20/25 22:14 72 94 O2 Del Method O2 Del Method O2 Flow Rate 07/21/25 07:43 Room Air 07/21/25 05:10 Room Air 07/21/25 00:42 Nasal Cannula 07/20/25 23:02 Room Air 07/20/25 22:14 Nasal Cannula 2
[2025-07-21] MEDS ORDERED: PHARMACY GLYCEMIC MGMT CONSULT PRN (13:22)
[2025-07-21] MEDS: ONDANSETRON INJ 2 MG/ML 2 ML VIAL IV PRN (13:35)
--- NOTE | 2025-07-21 14:59 | Pharmacy Report ---
Pharmacy Glycemic Short Note 2 - Date of Service July 21, 2025 - Glycemic Short BSG Results (Last 24 hours): 07/20/25 07/20/25 07/20/25 17:12 20:07 20:11 Glucose POC Glucose 280 H 444 H* 410 H* 07/21/25 07/21/25 07/21/25 00:07 04:07 06:28 Glucose 129 H POC Glucose 354 H* 234 H 07/21/25 07/21/25 07/21/25 07:45 11:31 11:32 Glucose POC Glucose 124 H 322 H* 309 H* OUTPATIENT ANTIDIABETIC REGIMEN: * Pioglitazone 30mg PO qAM * Metformin 1000mg PO BID * Glimepiride 4mg PO qAM * HbA1c: 8.9% (07/21/25) ASSESSMENT: * Ms Peralta is a 50yo diabetic F admitted with LE pain/weakness/ambulatory dysfunction. * BSGs have been difficult to control in the setting of PO intake. Pt reports not tolerating diabetic diet and carb intake has been unpredictable and greater than expected. * Will continue to provide coverage of known CHO intake and encourage pt to explore high protein options and limited carb intake when able. * Will provide another dose of basal insulin this evening in an attempt to reach better glycemic control. * Pharmacy will continue to follow and adjust regimen as indicated. PLAN FOR INPATIENT GLYCEMIC CONTROL: * Hold outpatient oral diabetes medications * Basal insulin * Lantus 10 units SQ this evening * will re-evaluate tomorrow * Bolus insulin * NovoLog per scale ACHS or Q6hrs while NPO * Goal Range: Low 110 mg/dL - High 140 mg/dL * Correction Factor: 30 mg/dL/unit * Nutritional / Prandial insulin per carb ratio of 1 unit per 10 grams CHO consumed
[2025-07-21] MEDS: CHECK BUPRENORPHINE PATCH SCH (15:34)
--- NOTE | 2025-07-21 16:49 | Hospitalist Progress Note ---
Date of Service July 21, 2025 Assessment & Plan (1) Bilateral leg numbness: Plan: Patient is a 50-year-old female with PMH HTN, HLD, COPD, DM II, CAD, STEMI s/p PCI LAD in 2019 & STEMI s/p PCI diagonal 2020, fibromyalgia, chronic pain, DDD, spinal stimulator placed March 2025 at [facility] in [place] PTSD, bipolar disorder, anxiety, depression, GERD, tobacco use presented to ER with c/o BLE weakness and bilateral feet pain started last night. #Chronic low back pain #BLE weakness #BLE numbness #BLE feet pain In ER given total 1 mg Dilaudid IV, Zofran, [address] abd/pelvis, CT L-spine: Again seen is a cystic lesion arising from the interpolar right kidney as detailed above. This has not appreciably changed from 07/18/2025 and contains foci of gas. There is mild surrounding inflammation. This may represent postbiopsy change. Superimposed infection would be impossible to exclude and clinical correlation will be essential. No additional acute abnormality is identified in the abdomen or pelvis. Prominent retroperitoneal lymph nodes are similar to previous. Continued attention at follow-up will be required. No acute bony abnormality is seen involving the lumbar spine. Consult ortho spine. Dr Desai aware and recommends MRI spine. MRI currently working to see if her stimulator is MRI compatible PT/OT eval Pain control with chronic Tylenol codeine, Butrans, gabapentin, tizanidine. 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 Desai's recommendations #CAD #HTN #HLD Continue aspirin, Plavix, rosuvastatin, metoprolol tartrate, losartan, clonidine #DM II A1c: 8.3 on 07/06/25 In ER BSG dropped to 60's improved with juice and sandwich Hold home metformin, glimepiride Basal bolus insulin per protcol Glycemic pharmacist consult to assist with varying hypoglycemia and hyperglycemia #Nocturnal Hypoxia Pt reports was on up to 6L O2 via [place] HS in past. States secondary to insurance issues has not had home oxygen Will start with 2L O2 HS and monitor nocturnal pulse ox study #COPD #Tobacco Use Continue home inhalers, albuterol prn Wheezing noted without reported increased cough, no sputum production or SOB. No consistent with COPD exacerbation at this time smoking cessation encouraged. Patient reports has cut back. She is hoping to stop smoking by the end of the month. Nicotine patch #Recent Pyelonephritis #Renal abscess vs Mass Following with [facility]. Treated with antibiotics. Reports no urinary symptoms. Reports improved right flank pain. Had recent renal biopsy on 07/17/25 at [facility], awaiting results UA unremarkable today # Bipolar disorder, anxiety, depression, PTSD Continue buspirone # GERD Continue PPI DVT Prophylaxis SCDs for now Admit med surg Full Code as per discussion with pt Follows with Dr Ranjith Lane for routine care Admission and Anticipated Discharge Date Admission Date: July 20, 2025 Subjective Seen sitting up in bed, comfortable, not in distress States she still having low back pain with bilateral lower extremity Weakness with some numbness and bilateral feet pain no urinary or bowel incontinence no chest pain, dyspnea, palpitations, dizziness No other symptoms Review of Systems Review of Systems: all noted and negative except for above Physical Exam Physical Exam: General- oriented x 3, not in distress, speaks in sentences with no effort or accessory muscle use Eyes- anicteric Neck- no JVD Lungs- clear breath sounds bilaterally, no rales/wheezes Heart- normal rate, regular rhythm; no murmurs Abdomen- normal bowel sounds, nondistended, soft, nontender Extremities- no pretibial edema, no calf tenderness Neuro- alert, oriented x 3; lower extremity sensation 80%, motor strength 3 out of 5 bilaterally Otherwise no other gross focal neurologic deficits Skin- warm & dry Results & Data Results & Data Vital Signs (Past 12 Hours) Vital Signs Temp Pulse Pulse Resp BP BP Pulse Ox 07/21/25 14:51 36.8 C 73 18 194/91 H 94 07/21/25 09:31 07/21/25 07:43 36.7 C 69 16 153/93 H 94 07/21/25 05:10 72 Pulse Ox O2 Del Method O2 Del Method 07/21/25 14:51 Room Air 07/21/25 09:31 Room Air 07/21/25 07:43 Room Air 07/21/25 05:10 95 Room Air all noted and reviewed including below
--- NOTE | 2025-07-21 17:12 | Magnetic Resonance Report ---
Lumbar spine MRI without IV contrast History: Lower extremity weakness Comparison: None Technique: Sagittal T1-weighted, sagittal STIR, 3D volumetric axial and sagittal reconstructed T2-weighted images of the lumbar spine were obtained without intravenous contrast. Findings: There are 5 lumbar-type vertebrae assumed for the purposes of this dictation. The tip of the conus medullaris is at L1. Normal lumbar vertebral alignment. No aggressive lesions. On a level by level basis: T12-L1: No spinal canal or neuroforaminal stenosis. L1-2: No spinal canal or neuroforaminal stenosis. L2-3: No spinal canal or neuroforaminal stenosis. L3-4: No spinal canal or neuroforaminal stenosis. L4-5: Disc height loss is moderate and there is loss of T2 signal. There is moderate left and mild to moderate right neuroforaminal stenosis. Small disc bulge without significant spinal canal stenosis. Type II Modic endplate degenerative signal. L5-S1: Disc height loss is mild and there is loss of T2 signal. Mild bilateral neuroforaminal stenosis. No spinal canal stenosis. Paraspinous tissues are within normal limits. A T2 hyperintense right renal cyst is seen medially. Note: The following findings are common in the absence of low back pain and while we report their presence, they must be interpreted with caution and in the context of the clinical situation. (Reference -Jarvik et al, Spine 2001) Findings (prevalence in patients without low back pain) Disc degeneration (decreased T2 signal, height loss, bulge) (91%) Disc T2 - signal loss (83%) Disc height loss (56%) Disc bulge (64%) Disc protrusion (32%) Annular tear (38%). Impression: No acute finding. Degenerative changes are most pronounced at L4-5, as above. Electronically signed by Gilberto Mcintosh 07-21-2025 5:11 PM
[2025-07-21] MEDS: LANTUS PER UNIT CHARGE SC ONE (17:32)
[2025-07-22] MEDS: ACETAMINOPHEN 1,000 MG/100 ML VIAL IV STA (01:18)
[2025-07-22] MEDS: LANTUS PER UNIT CHARGE SC SCH (09:15)
--- NOTE | 2025-07-22 10:31 | Orthopedic Progress Note ---
Date of Service July 22, 2025 Assessment & Plan (1) Ambulatory dysfunction: Plan: I would like to obtain an thoracic MRI to rule out cord compression contributing to her symptom complex. Will also evaluate the position of her dorsal column stimulator. Pending these results we may consider neurology consult Wednesday. Admission and Anticipated Discharge Date Admission Date: July 20, 2025 Subjective Patient continues to note bilateral foot pain and inability to ambulate. Physical Exam Physical Exam: On exam she is in bed she sits up without difficulty. She has 4/5 testing of the bilateral plantarflexion dorsiflexion. Sensory is diminished. No evidence of clonus. Results & Data Vital Signs (Past 12 Hours) Vital Signs Temp Pulse Resp BP BP Pulse Ox O2 Del Method 07/22/25 08:07 71 154/92 H 07/22/25 07:25 36.7 C 75 18 138/83 96 Room Air 07/22/25 07:15 Room Air 07/22/25 00:11 36.7 C 68 16 100/65 95 Room Air
--- NOTE | 2025-07-22 13:01 | Magnetic Resonance Report ---
MRI OF THE THORACIC SPINE WITHOUT CONTRAST CLINICAL HISTORY: Low back pain. Bilateral leg numbness, weakness and tingling. COMPARISON: Thoracic spine MRI April 14, 2012. TECHNIQUE: Utilizing a 1.5 Tigist magnet and dedicated coil, multiplanar, multiecho imaging of the th oracic spine was performed without IV contrast. FINDINGS: Alignment of the thoracic spine is anatomic. Vertebral body heights are maintained. No jose ow edema or marrow replacement is present. There are no thoracic spine fractures. A few small T1 and T2 hyperintense lesions within the thoracic spine represent hemangiomas. Susceptibility artifact from the spinal stimulator is noted. The stimulator lead terminates at the T8 level. Thoracic cord signal and caliber are normal. There is no intracanalicular mass or fluid collection. There are no disc her niations within the thoracic spine. The central canal and neural foramen are patent. Paravertebral so ft tissues are unremarkable. IMPRESSION: 1. No significant abnormality within the thoracic spine by MRI. 2. Spinal stimulator in place. Lead terminates at the T8 level. Exam mildly compromised by associated susceptibility artifact. 3. Normal thoracic cord signal and caliber. 4. No disc herniations. Patent central canal and neural foramen. ACT 112: Negative or not required by law. Electronically signed by: Arnie Otto M.D. 07/22/2025 12:59 PM
--- NOTE | 2025-07-22 15:39 | Hospitalist Progress Note ---
Date of Service July 22, 2025 Assessment & Plan (1) Bilateral leg numbness: Plan: Patient is a 50-year-old female with PMH HTN, HLD, COPD, DM II, CAD, STEMI s/p PCI LAD in 2019 & STEMI s/p PCI diagonal 2020, fibromyalgia, chronic pain, DDD, spinal stimulator placed March 2025 at [facility] in [place] PTSD, bipolar disorder, anxiety, depression, GERD, tobacco use presented to ER with c/o BLE weakness and bilateral feet pain started last night. #Chronic low back pain #BLE weakness #BLE numbness #BLE feet pain In ER given total 1 mg Dilaudid IV, Zofran, [address] abd/pelvis, CT L-spine: Again seen is a cystic lesion arising from the interpolar right kidney as detailed above. This has not appreciably changed from 07/18/2025 and contains foci of gas. There is mild surrounding inflammation. This may represent postbiopsy change. Superimposed infection would be impossible to exclude and clinical correlation will be essential. No additional acute abnormality is identified in the abdomen or pelvis. Prominent retroperitoneal lymph nodes are similar to previous. Continued attention at follow-up will be required. No acute bony abnormality is seen involving the lumbar spine. Consult ortho spine. Dr Desai aware and recommends MRI spine. MRI currently working to see if her stimulator is MRI compatible PT/OT eval Pain control with chronic Tylenol codeine, Butrans, gabapentin, tizanidine. 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 Desai's recommendations 07/22 still having significant pain Lumbar spine MRI showing neural foraminal stenosis thoracic spine MRI pending #CAD #HTN #HLD Continue aspirin, Plavix, rosuvastatin, metoprolol tartrate, losartan, clonidine #DM II A1c: 8.3 on 07/06/25 In ER BSG dropped to 60's improved with juice and sandwich Hold home metformin, glimepiride Basal bolus insulin per protocol Glycemic pharmacist consult to assist with varying hypoglycemia and hyperglycemia #Nocturnal Hypoxia Pt reports was on up to 6L O2 via [place] HS in past. States secondary to insurance issues has not had home oxygen Will start with 2L O2 HS and monitor nocturnal pulse ox study - resolved #COPD #Tobacco Use Continue home inhalers, albuterol prn Wheezing noted without reported increased cough, no sputum production or SOB. No consistent with COPD exacerbation at this time smoking cessation encouraged. Patient reports has cut back. She is hoping to stop smoking by the end of the month. Nicotine patch #Recent Pyelonephritis #Renal abscess vs Mass Following with [facility] [place]. Treated with antibiotics. Reports no urinary symptoms. Reports improved right flank pain. Had recent renal biopsy on 07/17/25 at [facility], awaiting results UA unremarkable today # Bipolar disorder, anxiety, depression, PTSD Continue buspirone # GERD Continue PPI DVT Prophylaxis SCDs for now Admit med surg Full Code as per discussion with pt Follows with Dr Ranjith Lane for routine care Admission and Anticipated Discharge Date Admission Date: July 20, 2025 Subjective sitting up in bed, not in distress Still having significant back pain No problems with urination No other new symptoms Awaiting thoracic MRI Review of Systems Review of Systems: all noted and negative except for above Physical Exam Physical Exam: General- oriented x 3, not in distress, speaks in sentences with no effort or accessory muscle use Eyes- anicteric Neck- no JVD Lungs- clear breath sounds bilaterally, no crackles/wheezing Heart- normal rate, regular rhythm; no murmurs Abdomen- normal bowel sounds, nondistended, soft, nontender Extremities- no pretibial edema, no calf tenderness Neuro- alert, oriented x 3; no gross focal neurologic deficits Skin- warm & dry Results & Data Results & Data Vital Signs (Past 12 Hours) Vital Signs Temp Pulse Resp BP BP Pulse Ox O2 Del Method 07/22/25 14:33 82 150/80 H 07/22/25 13:58 89 172/90 H 07/22/25 08:07 71 154/92 H 07/22/25 07:25 36.7 C 75 18 138/83 96 Room Air 07/22/25 07:15 Room Air all noted and reviewed including below
[2025-07-22] MEDS: ACETAMINOPHEN 500 MG TAB PO STA (17:47)
[2025-07-23] MEDS: GABAPENTIN 800 MG TAB PO SCH (09:13)
--- NOTE | 2025-07-23 10:15 | Hospitalist Progress Note ---
Date of Service July 23, 2025 Assessment & Plan (1) Bilateral leg numbness: Plan: Patient is a 50-year-old female with PMH HTN, HLD, COPD, DM II, CAD, STEMI s/p PCI LAD in 2019 & STEMI s/p PCI diagonal 2020, fibromyalgia, chronic pain, DDD, spinal stimulator placed March 2025 at [facility] in [place] PTSD, bipolar disorder, anxiety, depression, GERD, tobacco use presented to ER with c/o BLE weakness and bilateral feet pain started last night. #Chronic low back pain #BLE weakness #BLE numbness #BLE feet pain In ER given total 1 mg Dilaudid IV, Zofran, [address] abd/pelvis, CT L-spine: Again seen is a cystic lesion arising from the interpolar right kidney as detailed above. This has not appreciably changed from 07/18/2025 and contains foci of gas. There is mild surrounding inflammation. This may represent postbiopsy change. Superimposed infection would be impossible to exclude and clinical correlation will be essential. No additional acute abnormality is identified in the abdomen or pelvis. Prominent retroperitoneal lymph nodes are similar to previous. Continued attention at follow-up will be required. No acute bony abnormality is seen involving the lumbar spine. Consult ortho spine. Dr Desai aware and recommends MRI spine. MRI currently working to see if her stimulator is MRI compatible PT/OT eval Pain control with chronic Tylenol codeine, Butrans, gabapentin, tizanidine. 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 Desai's recommendations 07/22 still having significant pain Lumbar spine MRI showing neural foraminal stenosis thoracic spine MRI pending 07/23 Still having significant back pain Awaiting further recommendations by Dr. Desai Continue as needed pain medications #Hypertension Blood pressure elevated last evening in the setting of pain, headache Amlodipine 5 mg 1 dose given Blood pressure improving Continue to monitor Continue with pain control #CAD #HTN #HLD Continue aspirin, Plavix, rosuvastatin, metoprolol tartrate, losartan, clonidine #DM II A1c: 8.3 on 07/06/25 In ER BSG dropped to 60's improved with juice and sandwich Hold home metformin, glimepiride Basal bolus insulin per protocol Glycemic pharmacist consult to assist with varying hypoglycemia and hyperglycemia #Nocturnal Hypoxia Pt reports was on up to 6L O2 via [place] HS in past. States secondary to insurance issues has not had home oxygen Will start with 2L O2 HS and monitor nocturnal pulse ox study - resolved #COPD #Tobacco Use Continue home inhalers, albuterol prn Wheezing noted without reported increased cough, no sputum production or SOB. No consistent with COPD exacerbation at this time smoking cessation encouraged. Patient reports has cut back. She is hoping to stop smoking by the end of the month. Nicotine patch #Recent Pyelonephritis #Renal abscess vs Mass Following with [facility]. Treated with antibiotics. Reports no urinary symptoms. Reports improved right flank pain. Had recent renal biopsy on 07/17/25 at [facility], awaiting results UA unremarkable today # Bipolar disorder, anxiety, depression, PTSD Continue buspirone # GERD Continue PPI DVT Prophylaxis SCDs for now Admit med surg Full Code as per discussion with pt Follows with Dr Ranjith Lane for routine care Admission and Anticipated Discharge Date Admission Date: July 20, 2025 Subjective seen sitting up in bed, not in distress Still having significant back pain and lower extremity weakness bilaterally- somewhat better Also still having some paresthesias No other new symptoms Review of Systems Review of Systems: all noted and negative except for above Physical Exam Physical Exam: General- oriented x 3, not in distress, speaks in sentences with no effort or accessory muscle use Eyes- anicteric Neck- no JVD Lungs- clear breath sounds bilaterally, no rales/wheezes Heart- normal rate, regular rhythm; no murmurs Abdomen- normal bowel sounds, nondistended, soft, nontender Extremities- no pretibial edema, no calf tenderness Neuro- alert, oriented x 3; lower extremity bilateral motor strength seems to be improving, 4 out of 5 today Sensation about 80% bilaterally Skin- warm & dry Results & Data Results & Data Vital Signs (Past 12 Hours) Vital Signs Temp Pulse Resp BP Pulse Ox O2 Del Method 07/23/25 07:21 36.4 C L 73 16 102/69 94 Room Air all noted and reviewed including below
--- NOTE | 2025-07-23 10:28 | Orthopedic Progress Note ---
Date of Service July 23, 2025 Assessment & Plan (1) Falls: Plan: MRIs of the thoracic lumbar spine available and reviewed. I do not appreciate any evidence of cord compression or neural compromise that could account for her foot pain. I have discussed with her revisiting the [facility] clinicians for reprogramming of her stem to see if this can help with her foot pain. She may also 1 of us arrange an outpatient neurology follow-up regarding her foot pain and beginnings of peripheral neuropathy. This point there is no indication for surgical invention she is stable to be discharged today per orthopedics. Admission and Anticipated Discharge Date Admission Date: July 20, 2025 Subjective Patient still complains of burning in numbness in her feet. She did however tolerate physical therapy today. Physical Exam Physical Exam: On exam she has reasonable strength of testing. She appears comfortable. Results & Data Vital Signs (Past 12 Hours) Vital Signs Temp Pulse Resp BP Pulse Ox O2 Del Method 07/23/25 07:21 36.4 C L 73 16 102/69 94 Room Air
--- NOTE | 2025-07-23 10:57 | Pharmacy Report ---
Pharmacy Glycemic Short Note 2 - Date of Service July 23, 2025 - Glycemic Short BSG Results (Last 24 hours): 07/22/25 07/22/25 07/22/25 11:31 16:22 21:26 POC Glucose 150 H 184 H 145 H 07/23/25 07:38 POC Glucose 156 H OUTPATIENT ANTIDIABETIC REGIMEN: * Pioglitazone 30mg PO qAM * Metformin 1000mg PO BID * Glimepiride 4mg PO qAM * HbA1c: 8.9% (07/21/25) ASSESSMENT: 07/23: * BSGs largely within goal the last 48h: [id number]/dL since yesterday. Received 10 units of basal and 27 units of bolus insulin yesterday. * Tolerating diet, other stressors stable. * Continue Lantus 10 units daily and Novolog moderate stress scale. 07/21: * Ms Peralta is a 50yo diabetic F admitted with LE pain/weakness/ambulatory dysfunction. * BSGs have been difficult to control in the setting of PO intake. Pt reports not tolerating diabetic diet and carb intake has been unpredictable and greater than expected. * Will continue to provide coverage of known CHO intake and encourage pt to explore high protein options and limited carb intake when able. * Will provide another dose of basal insulin this evening in an attempt to reach better glycemic control. * Pharmacy will continue to follow and adjust regimen as indicated. PLAN FOR INPATIENT GLYCEMIC CONTROL: * Hold outpatient oral diabetes medications * Basal insulin * Lantus 10 units SQ daily * Bolus insulin * NovoLog per scale ACHS or Q6hrs while NPO * Goal Range: Low 110 mg/dL - High 140 mg/dL * Correction Factor: 30 mg/dL/unit * Nutritional / Prandial insulin per carb ratio of 1 unit per 10 grams CHO consumed
[2025-07-24] MEDS: LANTUS PER UNIT CHARGE SC SCH (09:08)
--- NOTE | 2025-07-24 11:51 | Pharmacy Report ---
Pharmacy Glycemic Short Note 2 - Date of Service July 24, 2025 - Glycemic Short BSG Results (Last 24 hours): 07/23/25 07/23/25 07/24/25 16:44 20:34 07:20 POC Glucose 225 H 220 H 253 H 07/24/25 11:40 POC Glucose 100 H OUTPATIENT ANTIDIABETIC REGIMEN: * Pioglitazone 30mg PO qAM * Metformin 1000mg PO BID * Glimepiride 4mg PO qAM * HbA1c: 8.9% (07/21/25) ASSESSMENT: 07/24: * Patient received total of 40 units of insulin yesterday, of which 10 units were basal * Fasting BSG >200 this AM, titrated up basal insulin * Tightened CF/CR with breakfast, bsgs much improving with lunch therefore will resume previous parameters 07/23: * BSGs largely within goal the last 48h: [phone]/dL since yesterday. Received 10 units of basal and 27 units of bolus insulin yesterday. * Tolerating diet, other stressors stable. * Continue Lantus 10 units daily and Novolog moderate stress scale. 07/21: * Ms Peralta is a 50yo diabetic F admitted with LE pain/weakness/ambulatory dysfunction. * BSGs have been difficult to control in the setting of PO intake. Pt reports not tolerating diabetic diet and carb intake has been unpredictable and greater than expected. * Will continue to provide coverage of known CHO intake and encourage pt to explore high protein options and limited carb intake when able. * Will provide another dose of basal insulin this evening in an attempt to reach better glycemic control. * Pharmacy will continue to follow and adjust regimen as indicated. PLAN FOR INPATIENT GLYCEMIC CONTROL: * Hold outpatient oral diabetes medications * Basal insulin * Lantus 15 units SQ daily * Bolus insulin * NovoLog per scale ACHS or Q6hrs while NPO * Goal Range: Low 110 mg/dL - High 140 mg/dL * Correction Factor: 30 mg/dL/unit * Nutritional / Prandial insulin per carb ratio of 1 unit per 10 grams CHO consumed
--- NOTE | 2025-07-24 12:00 | Hospitalist Progress Note ---
Date of Service July 24, 2025 Assessment & Plan (1) Bilateral leg numbness: Plan: Patient is a 50-year-old female with PMH HTN, HLD, COPD, DM II, CAD, STEMI s/p PCI LAD in 2019 & STEMI s/p PCI diagonal 2020, fibromyalgia, chronic pain, DDD, spinal stimulator placed March 2025 at [facility] in [place] PTSD, bipolar disorder, anxiety, depression, GERD, tobacco use presented to ER with c/o BLE weakness and bilateral feet pain started last night. #Chronic low back pain #BLE weakness #BLE numbness #BLE feet pain In ER given total 1 mg Dilaudid IV, Zofran, [address] abd/pelvis, CT L-spine: Again seen is a cystic lesion arising from the interpolar right kidney as detailed above. This has not appreciably changed from 07/18/2025 and contains foci of gas. There is mild surrounding inflammation. This may represent postbiopsy change. Superimposed infection would be impossible to exclude and clinical correlation will be essential. No additional acute abnormality is identified in the abdomen or pelvis. Prominent retroperitoneal lymph nodes are similar to previous. Continued attention at follow-up will be required. No acute bony abnormality is seen involving the lumbar spine. Consult ortho spine. Dr Desai aware and recommends MRI spine. MRI currently working to see if her stimulator is MRI compatible PT/OT eval Pain control with chronic Tylenol codeine, Butrans, gabapentin, tizanidine. 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 Desai's recommendations 07/22 still having significant pain Lumbar spine MRI showing neural foraminal stenosis thoracic spine MRI pending 07/23 Still having significant back pain Awaiting further recommendations by Dr. Desai Continue as needed pain medications 07/24 no surgical intervention per orthopedic service Dr. Desai Awaiting [place] investment representative to adjust patient's back stimulator Patient considering discharge later this afternoon #Hypertension Blood pressure elevated last evening in the setting of pain, headache Amlodipine 5 mg 1 dose given Blood pressure improving Continue to monitor Continue with pain control #CAD #HTN #HLD Continue aspirin, Plavix, rosuvastatin, metoprolol tartrate, losartan, clonidine #DM II A1c: 8.3 on 07/06/25 In ER BSG dropped to 60's improved with juice and sandwich Hold home metformin, glimepiride Basal bolus insulin per protocol Glycemic pharmacist consult to assist with varying hypoglycemia and hyperglycemia #Nocturnal Hypoxia Pt reports was on up to 6L O2 via [place] HS in past. States secondary to insurance issues has not had home oxygen Will start with 2L O2 HS and monitor nocturnal pulse ox study - resolved #COPD #Tobacco Use Continue home inhalers, albuterol prn Wheezing noted without reported increased cough, no sputum production or SOB. No consistent with COPD exacerbation at this time smoking cessation encouraged. Patient reports has cut back. She is hoping to stop smoking by the end of the month. Nicotine patch #Recent Pyelonephritis #Renal abscess vs Mass Following with [facility] [place]. Treated with antibiotics. Reports no urinary symptoms. Reports improved right flank pain. Had recent renal biopsy on 07/17/25 at [facility], awaiting results UA unremarkable today # Bipolar disorder, anxiety, depression, PTSD Continue buspirone # GERD Continue PPI DVT Prophylaxis SCDs for now Admit med surg Full Code as per discussion with pt Follows with Dr Ranjith Lane for routine care Admission and Anticipated Discharge Date Admission Date: July 20, 2025 Subjective Seen resting in bed, sitting up, comfortable, not in distress Still having some back pain, but leg numbness and weakness seems to be improving She is able to walk around with a rolling walker No new symptoms Review of Systems Review of Systems: all noted and negative except for above Physical Exam Physical Exam: General- oriented x 3, not in distress, speaks in sentences with no effort or accessory muscle use Eyes- anicteric Neck- no JVD Lungs- clear breath sounds bilaterally, no rales/wheezes Heart- normal rate, regular rhythm; no murmurs Abdomen- normal bowel sounds, nondistended, soft, nontender Extremities- no pretibial edema, no calf tenderness Neuro- alert, oriented x 3; Right lower extremity motor strength 4 out of 5, left 5/5 Sensation 80 to 90% Skin- warm & dry Results & Data Results & Data Vital Signs (Past 12 Hours) Vital Signs Temp Pulse Resp BP Pulse Ox O2 Del Method 07/24/25 11:28 36.6 C 72 12 114/62 95 Room Air 07/24/25 07:22 36.4 C L 74 14 121/81 94 Room Air all noted and reviewed including below
[2025-07-24 23:09] VITALS: RESP 16
[2025-07-25 07:24] VITALS: BP 116/77; PULSE 76; TEMP 98.4; O2SAT 95
--- NOTE | 2025-07-25 16:41 | Discharge Summary ---
Discharge Summary Date of Service July 25, 2025 delayed entry date of service noted above Principal Dx & Hospital Course #1 = Principal Diagnosis (1) Bilateral leg numbness: Patient is a 50-year-old female with PMH HTN, HLD, COPD, DM II, CAD, STEMI s/p PCI LAD in 2019 & STEMI s/p PCI diagonal 2020, fibromyalgia, chronic pain, DDD, spinal stimulator placed March 2025 at [facility] in [place] PTSD, bipolar disorder, anxiety, depression, GERD, tobacco use presented to ER with c/o BLE weakness and bilateral feet pain started last night. #Chronic low back pain #BLE weakness #BLE numbness #BLE feet pain In ER given total 1 mg Dilaudid IV, Zofran, [address] abd/pelvis, CT L-spine: Again seen is a cystic lesion arising from the interpolar right kidney as detailed above. This has not appreciably changed from 07/18/2025 and contains foci of gas. There is mild surrounding inflammation. This may represent postbiopsy change. Superimposed infection would be impossible to exclude and clinical correlation will be essential. No additional acute abnormality is identified in the abdomen or pelvis. Prominent retroperitoneal lymph nodes are similar to previous. Continued attention at follow-up will be required. No acute bony abnormality is seen involving the lumbar spine. Consult ortho spine. Dr Desai aware and recommends MRI spine. MRI currently working to see if her stimulator is MRI compatible PT/OT eval Pain control with chronic Tylenol codeine, Butrans, gabapentin, tizanidine. 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 Desai's recommendations 07/22 still having significant pain Lumbar spine MRI showing neural foraminal stenosis thoracic spine MRI pending 07/23 Still having significant back pain Awaiting further recommendations by Dr. Desai Continue as needed pain medications 07/25 no surgical intervention per orthopedic service Dr. Desai pain, weakness/numbness improving able to ambulate with rolling walker outpatient ff up with [employer] discussed with patient's outpatient pain management provider ERICKA Crawford she will prescribe Oxycodone as per patient's request ff up outpatient with Ortho Spine #Hypertension likely from pain required 1 dose of Amlodipine 5mg Blood pressure improved #Abnormal CT abd/pelvis findings The coronary arteries are densely calcified. Diffuse pericardial thickening is observed. The unenhanced liver is enlarged, measuring 20.8 cm in length. Again seen is an approximately 4 x 2 cm cystic lesion arising from the interpolar right kidney which contains foci of gas. This is seen on image #94 and has not appreciably changed from 07/11/2025. There is mild surrounding inflammation. Abdominal vasculature: The abdominal aorta is normal in course and caliber not ing advanced atherosclerotic calcification. Lymphadenopathy: Prominent retroperitoneal lymph nodes are similar to previous. A left periaortic node on image #144 measures 1.4 x 0.8 cm. 1. Again seen is a cystic lesion arising from the interpolar right kidney as detailed above. This has not appreciably changed from 07/18/2025 and contains foci of gas. There is mild surrounding inflammation. This may represent postbiopsy change. Superimposed infection would be impossible to exclude and clinical correlation will be essential. 2. No additional acute abnormality is identified in the abdomen or pelvis. 3. Prominent retroperitoneal lymph nodes are similar to previous. Continued attention at follow-up will be required. 4. No acute bony abnormality is seen involving the lumbar spine. 5. Advanced coronary artery atherosclerosis. 6. Additional findings as above. - Further work up, management, and ff up as outpatient #CAD #HTN #HLD Continue aspirin, Plavix, rosuvastatin, metoprolol tartrate, losartan, clonidine #DM II A1c: 8.3 on 07/06/25 In ER BSG dropped to 60's improved with juice and sandwich Hold home metformin, glimepiride Basal bolus insulin per protocol Glycemic pharmacist consult to assist with varying hypoglycemia and hyperglycemia -- resume outpatient regimen outpatient ff up #Nocturnal Hypoxia Pt reports was on up to 6L O2 via [place] HS in past. States secondary to insurance issues has not had home oxygen Will start with 2L O2 HS and monitor nocturnal pulse ox study: negative - resolved #COPD #Tobacco Use Continue home inhalers, albuterol prn Wheezing noted without reported increased cough, no sputum production or SOB. No consistent with COPD exacerbation at this time smoking cessation encouraged. Patient reports has cut back. She is hoping to stop smoking by the end of the month. Nicotine patch #Recent Pyelonephritis #Renal abscess vs Mass Following with [facility]. Treated with antibiotics. Reports no urinary symptoms. Reports improved right flank pain. Had recent renal biopsy on 07/17/25 at [facility], awaiting results UA unremarkable outpatient ff up # Bipolar disorder, anxiety, depression, PTSD Continue buspirone # GERD Continue PPI DVT Prophylaxis SCDs for now d/c home ff up with PCP as outpatient plan of care discussed with patient in detail and at length all questions answered she is understanding, agreeable, comfortable with the plan of care Notes For Next Care Provider Medication Changes From Visit as per med rec Admission HPI Per Admitting Provider Patient is a 50-year-old female with PMH HTN, HLD, COPD, DM II, CAD, STEMI s/p PCI LAD in 2019 & STEMI s/p PCI diagonal 2020, fibromyalgia, chronic pain, DDD, spinal stimulator placed March 2025 at [facility] in [place] PTSD, bipolar disorder, anxiety, depression, GERD, tobacco use presented to ER with c/o BLE weakness and bilateral feet pain started last night. Reports chronic back pain described as ache and sharp pain from mid back to lower back. She reports chronic bilateral heel pain with walking. She takes Tylenol with codeine four times a day and ibuprofen 800mg TID chronically. Reports woke up last night around midnight with low back pain. She took oxycodone (that she was given for right flank pain after renal biopsy) and fell back asleep. Reports waking up later to go to the bathroom and when she got to the bathroom she felt like her bilateral feet and lower legs were "on fire" and reports legs felt weak and couldn't walk back to bed without assistance. She states that her bilateral feet and lower legs feel tingly and numb along with the burning sensation. Reports last week had couple episodes stool incontinence. States chronic constipation and uses laxatives as needed. States past several days loose stool. States no bowel incontinence yesterday or today. Reports no BM today. States chronic stress urinary incontinence and feels this is baseline and denies any other urinary incontinence episodes. Denies dysuria, hematuria, urinary frequency. Patient with recent kidney biopsy and reports the right flank pain has improved but not resolved. Reports chronic cough. Denies any increased SOB. Denies fever/chills, diaphoresis, N/V, DIETZ, dizziness, syncope, vision changes, neck pain, CP, sore throat, rhinorrhea, other abdominal pain, extremity edema, rashes. Per chart review ER visit on 06/25/[address] abdomen pelvis with concern of pyelonephritis versus kidney abscess. She was ultimately transferred to [facility]. At [facility] for kidney infection and was discharged on 2 weeks of Levaquin, Flagyl course starting on 06/29/25 and patient reports completing the course. 07/17/2025 at [facility] for biopsy of right renal mass vs abscess Patient seen [facility] ER on 07/18/2025 for right flank pain and elevated blood pressure readings at home. In ER was given pain medication, UA unremarkable and did not have any leukocytosis. Blood pressures improved after pain control. Per note reported that ER physician spoke to her she on-call urology who felt if pain was controlled patient to be discharged home Admission Exam Per Admitting Provider General: no distress, WDWN Head: normocephalic, atraumatic Eyes: conjunctiva non-injected, anicteric ENT: normal inspection external ears, nose, mucous membranes moist Neck: supple, trachea midline Lungs: no respiratory distress, +scattered wheezing, no rhonchi/rales CV: RRR, no murmur, no pretibial edema Abd: normal BS, soft, +tenderness to right flank (pt reports has decreased prior prior) Back: +healed scar, +diffuse tenderness to palpation entire thoracic and lumbar spine, no ecchymosis or erythema. +straight leg raise to 45 degrees. strength appears intact and dorsiflexion and plantar flexion intact. Reported decreased sensation to dorsal and plantar bilateral feet and posterior calves bilaterally. brisk capillary refill, sensation to light touch intact Ext: no cyanosis, no calf tenderness Neuro: A&O x 3, no focal deficits noted, normal affect Skin: warm, dry Discharge Exam General- oriented x 3, not in distress, speaks in sentences with no effort or accessory muscle use Eyes- anicteric Neck- no JVD Lungs- clear breath sounds bilaterally, no rales/wheezes Heart- normal rate, regular rhythm; no murmurs Abdomen- normal bowel sounds, nondistended, soft, nontender Extremities- no pretibial edema, no calf tenderness sensation LE BL 80-90% strength LE BL 4/5 Neuro- alert, oriented x 3; no gross focal neurologic deficits Skin- warm & dry Updated Medication List Medication Instructions Recorded Confirmed Type clopidogrel 75 mg tablet 75 mg PO QAM 07/24/18 07/20/25 History cyanocobalamin (vitamin B-12) 1,000 mcg subcut MONTHLY 10/23/18 07/20/25 History 1,000 mcg/mL injection solution albuterol sulfate 0.63 mg/3 mL 0.63 mg continuous nebulization 06/25/25 07/20/25 History solution for nebulization Q6H PRN Wheezing albuterol sulfate 90 mcg/actuation 2 puff inhalation QID PRN 06/25/25 07/20/25 History aerosol inhaler Shortness Of Breath Or Wheezing aspirin 81 mg chewable tablet 81 mg PO QAM 06/25/25 07/20/25 History buprenorphine 20 mcg/hour weekly 1 patch topical WK 06/25/25 07/20/25 History transdermal patch (Butrans) buspirone 10 mg tablet 10 mg PO QID 06/25/25 07/20/25 History clonidine HCl 0.2 mg tablet 0.2 mg PO HS 06/25/25 07/20/25 History docusate sodium 100 mg capsule 100 mg PO BID 06/25/25 07/20/25 History epinephrine 0.3 mg/0.3 mL 0.3 mg IM DIRECTED PRN Allergic 06/25/25 07/20/25 History injection, auto-injector Reaction ferrous sulfate 325 mg (65 mg 325 mg PO BID 06/25/25 07/20/25 History iron) tablet (FeroSul) gabapentin 800 mg tablet 1,200 mg PO HS 06/25/25 07/20/25 History gabapentin 800 mg tablet 800 mg PO BID 06/25/25 07/20/25 History glimepiride 4 mg tablet 4 mg PO QAM 06/25/25 07/20/25 History ipratropium 0.5 mg-albuterol 3 mg 3 ml inhalation Q6H PRN Wheezing 06/25/25 07/20/25 History (2.5 mg base)/3 mL nebulization soln levocetirizine 5 mg tablet 5 mg PO QPM 06/25/25 07/20/25 History magnesium oxide 400 mg (241.3 mg 400 mg PO BID 06/25/25 07/20/25 History magnesium) tablet metformin 1,000 mg tablet 1,000 mg PO BID 06/25/25 07/20/25 History metoprolol tartrate 100 mg tablet 100 mg PO BID 06/25/25 07/20/25 History montelukast 10 mg tablet 10 mg PO HS 06/25/25 07/20/25 History naproxen 500 mg tablet 500 mg PO BID PRN Pain 06/25/25 07/20/25 History ondansetron HCl 4 mg tablet 4 mg PO Q6H 06/25/25 07/20/25 History pantoprazole 40 mg tablet,delayed 40 mg PO BID 06/25/25 07/20/25 History release pioglitazone 30 mg tablet 30 mg PO QAM 06/25/25 07/20/25 History potassium chloride 20 mEq 20 meq PO BID 06/25/25 07/20/25 History tablet,extended release(part/cryst) promethazine 25 mg tablet 25 mg PO BID 06/25/25 07/20/25 History rosuvastatin 20 mg tablet 20 mg PO QAM 06/25/25 07/20/25 History tizanidine 4 mg tablet 4 mg PO TID 06/25/25 07/20/25 History trazodone 300 mg tablet 150 - 300 mg PO HS 06/25/25 07/20/25 History umeclidinium 62.5 mcg-vilanterol 2 inh inhalation QAM 06/25/25 07/20/25 History 25 mcg/actuation powdr for inhalation (Anoro Ellipta) viloxazine 150 mg capsule,extended 150 mg PO DAILY 06/25/25 07/20/25 History release 24 hr (Qelbree) vortioxetine 20 mg tablet 20 mg PO DAILY 06/25/25 07/20/25 History (Trintellix) zolpidem 12.5 mg tablet,extended 12.5 mg PO HS 06/25/25 07/20/25 History release,multiphase ibuprofen 800 mg tablet 800 mg PO TID 07/11/25 07/20/25 History oxycodone 5 mg tablet 5 mg PO Q8H PRN pain #14 tabs 07/18/25 07/20/25 Rx acetaminophen 300 mg-codeine 60 mg 1 tab PO Q6H PRN Pain #0 tabs 07/25/25 07/20/25 Rx tablet Hospital Stay Data Consultations 07/20/25 15:22 ED Decision to Admit Stat 07/20/25 16:18 Consult Orthopedic Spine Surgery Routine Diagnostic Imagining Performed Laboratory Results WBC 9.83 K/ul (4.8-10.8) 07/21/25 06: RBC 3.88 M/uL (4.20-5.40) L 07/21/25 06:28 Hgb 11.5 g/dl (12.0-16.0) L 07/21/25 06:28 Hct 34.2 % (37.0-47.0) L 07/21/25 06: MCV 88.1 fL (80.0-100.0) 07/21/25 06: MCH 29.6 pg (25.0-34.0) 07/21/25 06: MCHC 33.6 g/dL (32.0-36.0) 07/21/25: RDW Std Deviation 44.2 fL (36.4-46.3) 07/21/25: RDW Coeff of Marilyn 13.7 % (11.5-14.5) 07/21/25: Plt Count 234 K/uL (130-400) 07/21/25 06: MPV 9.6 fL (9.4-12.4) 07/21/25 06: Immature Gran % (Auto) 0.2 % 07/20/25 11:29 Neut % (Auto) 49.9 % 07/20/25 11:29 Lymph % (Auto) 42.7 % 07/20/25 11:29 [place] % (Auto) 5.9 % 07/20/25 11:29 Eos % (Auto) 1.0 % 07/20/25 11:29 Baso % (Auto) 0.3 % 07/20/25 11:29 Neut # (Auto) 5.12 K/uL (1.40-6.50) 07/20/25 11:29 Lymph # (Auto) 4.38 K/uL (1.20-3.40) H 07/20/25 11:29 [place] # (Auto) 0.60 K/uL (0.11-0.59) H 07/20/25 11:29 Eos # (Auto) 0.10 K/uL (0.00-0.50) 07/20/25 11:29 Baso # (Auto) 0.03 K/uL (0.00-0.20) 07/20/25 11:29 Immature Gran # (Auto) 0.02 K/uL (0.01-0.20) 07/20/25 11:29 PT 10.3 Seconds (9.0-12.0) 07/20/25 11:29 INR 0.9 (0.9-1.1) 07/20/25 11:29 Sodium 135 mmol/L (136-145) L 07/21/25 06:28 Potassium 4.6 mmol/L (3.5-5.1) D 07/21/25 06:28 Chloride 105 mmol/L (98-107) 07/21/25 06:28 Carbon Dioxide 24 mmol/L (21-32) 07/21/25 06:28 Anion Gap 6 (3-11) 07/21/25 06:28 BUN 11 mg/dl (6-23) 07/21/25 06:28 Creatinine 0.50 mg/dl (0.6-1.2) L 07/21/25 06:28 Est Cr Clr Drug Dosing 119.5 ml/min 07/21/25 06:28 eGFR 114.90 07/21/25 06:28 BUN/Creatinine Ratio 22.0 (10-20) H 07/21/25 06:28 Glucose 129 mg/dl (70-99(Fasting)) H 07/21/25 06:28 POC Glucose 163 mg/dl (70-99) H 07/25/25 07:25 Estimat Average Glucose 209 mg/dl 07/21/25 06:28 Hemoglobin A1c 8.9 % (4.5-5.6) H 07/21/25 06:28 Calcium 9.2 mg/dl (8.6-10.3) 07/21/25 06:28 Magnesium 2.0 mg/dl (1.7-2.4) 07/21/25 06:28 Total Bilirubin 0.4 mg/dl (0.2-1.0) 07/20/25 11:29 AST 13 U/L (13-39) 07/20/25 11:29 ALT 11 U/L (7-52) 07/20/25 11:29 Alkaline Phosphatase 108 U/L (34-104) H 07/20/25 11:29 Total Creatine Kinase 28 U/L (26-192) 07/20/25 11:29 Total Protein 6.5 gm/dl (6.0-8.3) 07/20/25 11:29 Albumin 3.8 gm/dl (3.4-5.0) 07/20/25 11: Globulin 2.7 gm/dl (2.5-4.0) 07/20/25 11:29 Albumin/Globulin Ratio 1.4 (0.9-2) 07/20/25 11:29 TSH 0.672 uIu/ml (0.300-4.500) 07/20/25 11:29 Urine Color Yellow 07/20/25 16:46 Urine Appearance Clear (Clear) 07/20/25 16:46 Urine pH 6.0 (4.5-7.5) 07/20/25 16:46 Ur Specific [place] 1.007 (1.000-1.030) 07/20/25 16:46 Urine Protein Negative (Negative) 07/20/25 16:46 Urine Glucose (UA) Negative (Negative) 07/20/25 16:46 Urine Ketones Negative (Negative) 07/20/25 16:46 Urine Blood Negative (Negative) 07/20/25 16:46 Urine Nitrite Negative (Negative) 07/20/25 16:46 Urine Bilirubin Negative (Negative) 07/20/25 16:46 Urine Urobilinogen Negative (Negative) 07/20/25 16:46 Ur Leukocyte Esterase Trace (Negative) H 07/20/25 16:46 Urine WBC (Auto) 0-5 /hpf (0-5) 07/20/25 16:46 Urine RBC (Auto) 0-2 /hpf (0-2) 07/20/25 16:46 U Hyaline Cast (Auto) 0-2 /lpf (0-2) 07/20/25 16:46 U Epithel Cells (Auto) 0-2 /hpf (0-2) 07/20/25 16:46 Urine Bacteria (Auto) None Seen (None Seen) 07/20/25 16:46 Urine Comment 07/20/25 16:46 Impressions Abdomen/Pelvis CT 07/20/25 11:34 CT SCAN OF THE ABDOMEN AND PELVIS WITHOUT IV CONTRAST; CT SCAN OF THE LUMBAR SPINE WITHOUT IV CONTRAST CLINICAL HISTORY: Falls. Lower extremity weakness. Recent renal biopsy. COMPARISON STUDY: Abdominal CT dated 07/18/2025. TECHNIQUE: CT scan of the abdomen and pelvis is performed from the lung bases to the proximal femora. Additionally, CT scan of the lumbar spine is performed from the lower thoracic spine to the sacrum. Images for both examination are reviewed in the axial, sagittal, and coronal planes. IV contrast was not administered for this examination. A dose lowering technique was utilized adhering to the principles of ALARA. CT DOSE: 971.23 mGy.cm FINDINGS: Lung bases: The heart is mildly enlarged and without pericardial effusion. The coronary arteries are densely calcified. Probable scarring is seen at both lung bases. Diffuse pericardial thickening is observed. No lobar consolidation or pleural effusion is identified. There is a small hiatal hernia. Liver: The unenhanced liver is enlarged, measuring 20.8 cm in length. The liver is otherwise normal in contour and attenuation. There is no intrahepatic biliary ductal dilatation. Gallbladder: Surgically absent noting clips in the gallbladder fossa. Spleen: Normal in size and attenuation. Pancreas: Unremarkable. Adrenal glands: Unremarkable. Kidneys: The unenhanced kidneys are normal in size and without hydronephrosis. No renal calculi are identified and no ureteral stone is seen. Again seen is an approximately 4 x 2 cm cystic lesion arising from the interpolar right kidney which contains foci of gas. This is seen on image #94 and has not appreciably changed from 07/11/2025. There is mild surrounding inflammation. Abdominal vasculature: The abdominal aorta is normal in course and caliber noting advanced atherosclerotic calcification. Bowel: There is no bowel obstruction. [id number] fecal retention is seen throughout the colon. The appendix is not identified. Postoperative changes adjacent to cecum suggests prior appendectomy. Peritoneum: There is no intraperitoneal free air or abdominal ascites. Lymphadenopathy: Prominent retroperitoneal lymph nodes are similar to previous. A left periaortic node on image #144 measures 1.4 x 0.8 cm. Pelvic viscera: The bladder is distended but otherwise normal as imaged. The uterus is surgically absent. No adnexal lesion is seen. Skeletal structures: No lytic or blastic lesions are seen. Postsurgical changes noted in the lower thoracic region. An intrathecal lead is seen in the lower thoracic region. LUMBAR SPINE: Vertebral body height and alignment are maintained throughout the lumbar spine. There is no evidence of fracture or malalignment. The transverse and spinous processes are intact. There is no spondylolysis. There is mild disc space narrowing at L4-L5 with a small posterior disc bulge at this level. The remaining disc spaces are maintained. There is no CT evidence of large disc herniation or high-grade central canal stenosis. The paraspinous soft tissues are within normal limits. Soft tissues: A neurostimulator device is seen in the right gluteal tissues. IMPRESSION: 1. Again seen is a cystic lesion arising from the interpolar right kidney as detailed above. This has not appreciably changed from 07/18/2025 and contains foci of gas. There is mild surrounding inflammation. This may represent postbiopsy change. Superimposed infection would be impossible to exclude and clinical correlation will be essential. 2. No additional acute abnormality is identified in the abdomen or pelvis. 3. Prominent retroperitoneal lymph nodes are similar to previous. Continued attention at follow-up will be required. 4. No acute bony abnormality is seen involving the lumbar spine. 5. Advanced coronary artery atherosclerosis. 6. Additional findings as above. ACT 112: Negative or not required by law. Electronically signed by: Travon Pena M.D. 07/20/2025 12:[address] 07/20/25 11:34 CT SCAN OF THE ABDOMEN AND PELVIS WITHOUT IV CONTRAST; CT SCAN OF THE LUMBAR SPINE WITHOUT IV CONTRAST CLINICAL HISTORY: Falls. Lower extremity weakness. Recent renal biopsy. COMPARISON STUDY: Abdominal CT dated 07/18/2025. TECHNIQUE: CT scan of the abdomen and pelvis is performed from the lung bases to the proximal femora. Additionally, CT scan of the lumbar spine is performed from the lower thoracic spine to the sacrum. Images for both examination are reviewed in the axial, sagittal, and coronal planes. IV contrast was not administered for this examination. A dose lowering technique was utilized adhering to the principles of ALARA. CT DOSE: 971.23 mGy.cm FINDINGS: Lung bases: The heart is mildly enlarged and without pericardial effusion. The coronary arteries are densely calcified. Probable scarring is seen at both lung bases. Diffuse pericardial thickening is observed. No lobar consolidation or pleural effusion is identified. There is a small hiatal hernia. Liver: The unenhanced liver is enlarged, measuring 20.8 cm in length. The liver is otherwise normal in contour and attenuation. There is no intrahepatic biliary ductal dilatation. Gallbladder: Surgically absent noting clips in the gallbladder fossa. Spleen: Normal in size and attenuation. Pancreas: Unremarkable. Adrenal glands: Unremarkable. Kidneys: The unenhanced kidneys are normal in size and without hydronephrosis. No renal calculi are identified and no ureteral stone is seen. Again seen is an approximately 4 x 2 cm cystic lesion arising from the interpolar right kidney which contains foci of gas. This is seen on image #94 and has not appreciably changed from 07/11/2025. There is mild surrounding inflammation. Abdominal vasculature: The abdominal aorta is normal in course and caliber noting advanced atherosclerotic calcification. Bowel: There is no bowel obstruction. [id number] fecal retention is seen throughout the colon. The appendix is not identified. Postoperative changes adjacent to cecum suggests prior appendectomy. Peritoneum: There is no intraperitoneal free air or abdominal ascites. Lymphadenopathy: Prominent retroperitoneal lymph nodes are similar to previous. A left periaortic node on image #144 measures 1.4 x 0.8 cm. Pelvic viscera: The bladder is distended but otherwise normal as imaged. The uterus is surgically absent. No adnexal lesion is seen. Skeletal structures: No lytic or blastic lesions are seen. Postsurgical changes noted in the lower thoracic region. An intrathecal lead is seen in the lower thoracic region. LUMBAR SPINE: Vertebral body height and alignment are maintained throughout the lumbar spine. There is no evidence of fracture or malalignment. The transverse and spinous processes are intact. There is no spondylolysis. There is mild disc space narrowing at L4-L5 with a small posterior disc bulge at this level. The remaining disc spaces are maintained. There is no CT evidence of large disc herniation or high-grade central canal stenosis. The paraspinous soft tissues are within normal limits. Soft tissues: A neurostimulator device is seen in the right gluteal tissues. IMPRESSION: 1. Again seen is a cystic lesion arising from the interpolar right kidney as detailed above. This has not appreciably changed from 07/18/2025 and contains foci of gas. There is mild surrounding inflammation. This may represent postbiopsy change. Superimposed infection would be impossible to exclude and clinical correlation will be essential. 2. No additional acute abnormality is identified in the abdomen or pelvis. 3. Prominent retroperitoneal lymph nodes are similar to previous. Continued attention at follow-up will be required. 4. No acute bony abnormality is seen involving the lumbar spine. 5. Advanced coronary artery atherosclerosis. 6. Additional findings as above. ACT 112: Negative or not required by law. Electronically signed by: Travon Pena M.D. 07/20/2025 12:28 PM Lumbar Spine MRI 07/21/25 17:57 Lumbar spine MRI without IV contrast History: Lower extremity weakness Comparison: None Technique: Sagittal T1-weighted, sagittal STIR, 3D volumetric axial and sagittal reconstructed T2-weighted images of the lumbar spine were obtained without intravenous contrast. Findings: There are 5 lumbar-type vertebrae assumed for the purposes of this dictation. The tip of the conus medullaris is at L1. Normal lumbar vertebral alignment. No aggressive lesions. On a level by level basis: T12-L1: No spinal canal or neuroforaminal stenosis. L1-2: No spinal canal or neuroforaminal stenosis. L2-3: No spinal canal or neuroforaminal stenosis. L3-4: No spinal canal or neuroforaminal stenosis. L4-5: Disc height loss is moderate and there is loss of T2 signal. There is moderate left and mild to moderate right neuroforaminal stenosis. Small disc bulge without significant spinal canal stenosis. Type II Modic endplate degenerative signal. L5-S1: Disc height loss is mild and there is loss of T2 signal. Mild bilateral neuroforaminal stenosis. No spinal canal stenosis. Paraspinous tissues are within normal limits. A T2 hyperintense right renal cyst is seen medially. Note: The following findings are common in the absence of low back pain and while we report their presence, they must be interpreted with caution and in the context of the clinical situation. (Reference -Jarvik et al, Spine 2001) Findings (prevalence in patients without low back pain) Disc degeneration (decreased T2 signal, height loss, bulge) (91%) Disc T2 - signal loss (83%) Disc height loss (56%) Disc bulge (64%) Disc protrusion (32%) Annular tear (38%). Impression: No acute finding. Degenerative changes are most pronounced at L4-5, as above. Electronically signed by Gilberto Mcintosh 07-21-2025 5:11 PM Thoracic Spine MRI 07/22/25 10:29 MRI OF THE THORACIC SPINE WITHOUT CONTRAST CLINICAL HISTORY: Low back pain. Bilateral leg numbness, weakness and tingling. COMPARISON: Thoracic spine MRI April 14, 2012. TECHNIQUE: Utilizing a 1.5 Tigist magnet and dedicated coil, multiplanar, multiecho imaging of the thoracic spine was performed without IV contrast. FINDINGS: Alignment of the thoracic spine is anatomic. Vertebral body heights are maintained. No marrow edema or marrow replacement is present. There are no thoracic spine fractures. A few small T1 and T2 hyperintense lesions within the thoracic spine represent hemangiomas. Susceptibility artifact from the spinal stimulator is noted. The stimulator lead terminates at the T8 level. Thoracic cord signal and caliber are normal. There is no intracanalicular mass or fluid collection. There are no disc herniations within the thoracic spine. The central canal and neural foramen are patent. Paravertebral soft tissues are unremarkable. IMPRESSION: 1. No significant abnormality within the thoracic spine by MRI. 2. Spinal stimulator in place. Lead terminates at the T8 level. Exam mildly compromised by associated susceptibility artifact. 3. Normal thoracic cord signal and caliber. 4. No disc herniations. Patent central canal and neural foramen. ACT 112: Negative or not required by law. Electronically signed by: Arnie Otto M.D. 07/22/2025 12:59 PM Discharge Instructions Given to Patient (Per Discharging Provider) PLEASE RESUME YOUR MEDICATION LIST AND FOLLOW INSTRUCTIONS CAREFULLY. PLEASE CALL YOUR PRIMARY CARE PHYSICIAN OR RETURN TO THE ER IF WITH WORSENING OF SYMPTOMS, INCLUDING worsening lower extremity weakness, pain, numbness, incontinence. back pain, etc FOLLOW UP WITH PRIMARY CARE PHYSICIAN OUTLINED ABOVE. Total Time Total Time Spent Total Time Spent (In Minutes): 50 minutes
== END 2025-07-25 11:52 | disposition home health service (06) | DRG 552 ==
LOC: ED 10:17 → 3W 16:17 → SUATTDRO 16:17 → 3W 18:13